=== PATIENT | male | born 1970 | race Caucasian/White ===

== ENCOUNTER 2019-01-11 09:56 | Inpatient (IN) ==
[2019-01-11] MEDS ORDERED: PIPERACILL/TAZOBAC CONSULT ACTIVE PRN (11:03)
[2019-01-11] MEDS ORDERED: PIPERACILLIN/TAZOBACTAM 4.5 GM/120 ML BAG IV ONE (11:03)
--- NOTE | 2019-01-11 11:43 | XRay Report ---
XR foot LT min 3V routine CLINICAL HISTORY: infection pain. Infection. COMPARISON: None. DISCUSSION: Considerable soft tissue edema about the phalanges of the second third and to a lesser ex tent fourth toes. Findings suggesting old posttraumatic change involving the second as well as distal third metatarsal. In the absence of prior images it is difficult to completely exclude the possibility of a superimpose d inflammatory or infectious process. Generalized soft tissue edema IMPRESSION: Findings suggesting generalized soft tissue edema surrounding the second and third metata rsal phalangeal complexes. Possibility of an infectious process creating the disruption at the metata rsophalangeal joints must be considered. The above report was generated using voice recognition software. It may contain grammatical, syntax or spelling errors. Electronically signed by: Linwood Montez M.D. 01/11/2019 11:42 AM
[2019-01-11 11:44] LABS: Basophils # (auto) 0.04 K/uL (0-0.2); Basophils % (auto) 0.3 %; Eosinophils # (auto) 0.14 K/uL (0-0.5); Hematocrit (blood only) 42.6 % (42-52); Hemoglobin 15.4 g/dL (14.0-18.0); Immature Granulocytes # (auto) 0.05 K/uL (0.00-0.02); Immature Granulocytes % (auto) 0.4 %; Lymphocytes # (auto) 2.25 K/uL (1.2-3.4); Lymphocytes % (auto) 16.1 %; Mean Corpuscular Hgb Conc 36.2 g/dL (32-36); Mean Corpuscular Volume 89.9 fL (80-100); Mean Platelet Volume 8.7 fL (7.4-10.4); Monocytes # (auto) 1.36 K/uL (0.11-0.59); Monocytes % (auto) 9.7 %; Neutrophils # (auto) 10.13 K/uL (1.4-6.5); Neutrophils % (auto) 72.5 %; Platelet Count 300 K/uL (130-400); RDW Coefficient of Variation 13.7 % (11.5-14.5); RDW Standard Deviation 45.4 fL (36.4-46.3); Red Blood Count 4.74 M/uL (4.7-6.1); White Blood Count 13.97 K/uL (4.8-10.8)
[2019-01-11 11:50] LABS: Albumin Level 3.7 gm/dl (3.4-5.0); BUN Creatinine Ratio 15.6 (10-20); Calcium 9.2 mg/dl (8.5-10.1); Creatinine Clr Calc Pharmacy 156.4 ml/min; Est GFR (Non-African American) 104.4; Potassium 3.8 mmol/L (3.5-5.1)
[2019-01-11 11:52] LABS: Albumin Globulin Ratio 0.8 (0.9-2); Bilirubin,Total 0.9 mg/dl (0.2-1); C Reactive Protein 12.5 mg/dl (0-0.29); Globulin 4.6 gm/dl (2.5-4.0); Total Protein 8.3 gm/dl (6.4-8.2)
--- NOTE | 2019-01-11 12:06 | Ultrasound Report ---
US venous doppler LE LT CLINICAL HISTORY: pain PAIN. EDEMA. COMPARISON STUDY: No previous studies for comparison. FINDINGS: Real-time and color flow Doppler imaging were performed. Flow was seen within the femoral, popliteal and calf veins with no intraluminal thrombus demonstrated. The saphenous vein is patent. IMPRESSION: No evidence of deep venous thrombosis. Incidental note is made of probable reactive adeno davina of the inguinal region with nodes measuring up to 3.5 x 2.0 cm. The above report was generated using voice recognition software. It may contain grammatical, syntax or spelling errors. Electronically signed by: Linwood Montez M.D. 01/11/2019 12:05 PM
[2019-01-11] MEDS ORDERED: DAPTOmycin 600 MG in SYRINGE 0 ML IV ONE (12:34)
--- NOTE | 2019-01-11 14:05 | History & Physical Report ---
Date of Service January 11, 2019 Assessment & Plan (1) Wound of left foot: -Admit to [facility] -Patient presenting from home with reports of a wound to the left foot. Patient has history of a prior left foot wound after stepping on a nail 04/2017. At that time, patient developed left septic third MCP joint, flexor tendosynovitis, and plantar foot abscess. He underwent extensive debridement at that time. Wound had completely healed by 07/2017. Wound reopened 09/2018, possibly secondary to boots the patient has been wearing for work. Patient was seen up in the wound care clinic at [facility] and had localized debridement and was placed on p.o. Augmentin. -History of neuropathy, unknown etiology; patient is not a diabetic -WBC 13.9K; no other signs of sepsis, hemodynamically stable -X-ray showing possible osteomyelitis of the second and third metatarsals -Received IV Dapto and Zosyn in the ED, will continue with -Follow wound and blood cultures -Previous cultures from 2017 grew MSSA -Obtain arterial ultrasound given nonhealing, recurrent wound -Orthopedics consult, case discussed with Frank Miranda PA-C (2) Hypertension: -BP elevated on presentation, likely situational -Continue home dose of lisinopril, make adjustments as needed (3) PEARL on CPAP: -CPAP as per home settings (4) Tobacco abuse: -Patient counseled regarding tobacco cessation (5) Alcohol abuse: -Patient reports drinking 24 beers on the weekend -will place on alcohol withdrawal "at risk" protocol -Start multivitamin, folic acid, thiamine (6) DVT prophylaxis: -SQ Lovenox History of Present Illness Chief Complaint: Left foot wound Primary Care Provider: NO PCP 48-year-old male who presents to the ED with a left foot wound. Patient has history of a prior left foot wound after stepping on a nail 04/2017. At that time, patient developed left septic third MCP joint, flexor tendosynovitis, and plantar foot abscess. He underwent extensive debridement at that time. Wound had completely healed by 07/2017. Wound reopened 09/2018, possibly secondary to boots the patient has been wearing for work. Patient was seen up in the wound care clinic at [facility] and had localized debridement and was placed on p.o. Augmentin. Patient reports wound had again closed up however reopened about 3 weeks ago. He noticed drainage last evening. He also had pain extending from the bottom of the foot up into the calf. He reports he felt generally unwell and felt as though he had a fever however did not take his temperature. Patient denies chest pain shortness of breath. No lightheadedness, dizziness, diaphoresis, syncopal events. He denies abdominal pain, nausea, vomiting, diarrhea. No urinary symptoms. In the ED, left foot x-ray shows findings suggesting generalized soft tissue edema surrounding the second and third metatarsal phalangeal complexes. Possibility of an infectious process creating the disruption at the metatarsophalangeal joints must be considered. WBC 13.9K, other labs unremarkable. Patient is hemodynamically stable. Patient was given IV Zosyn and IV daptomycin. Allergies Allergy/AdvReac Type Severity Reaction Status Date / Time No Known Allergies Allergy Unverified 01/11/19 10:46 Home Medications Home Medications Medication Instructions Recorded Confirmed Type lisinopril 20 mg PO QAM 01/11/19 01/11/19 History Past Med/Surg History Medical History Tobacco abuse (Chronic) PEARL on CPAP (Chronic) Hypertension (Chronic) Wound of left foot (Chronic) S/P extensive debridement 04/2017 HTN (hypertension) (Chronic) Surgical History S/P right knee arthroscopy (Chronic) History of total left knee replacement (Chronic) Family History Father Heart disease Fatal [place] at age 51 Social History Preferred Language: Qatari Communication Ability: Effective 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 Beliefs That Will Affect Care: None Current Living Situation: Spouse Other Information That Helps Us Care for You: No Feels Safe at Home: Yes Safety Concerns: Feels Safe At This Time Smoking Status: Current every day smoker Tobacco Type: cigarettes Do You Dip or Chew Tobacco: No Second Hand Exposure: No Tobacco Cessation Education Requested by Patient: No Hx Alcohol Use: Yes Alcohol type: beer Alcohol Intake Frequency: Weekly Alcohol Intake Frequency Comment: 24 beers/weekend Hx Substance Use: No Review of Systems Review of Systems: ROS per HPI, all other systems reviewed and negative Physical Exam Constitutional: WD/WN, vitals as above Eyes: PERRL, conjunctivae normal, anicteric sclerae ENMT: external ear and nose normal, oropharynx normal Respiratory: normal respiratory effort, lungs clear to auscultation Cardiovascular: Rate/Rhythm: regular rate and regular rhythm Vessels: normal peripheral pulses Extremities: no edema Gastrointestinal (Abdomen): normal bowel sounds, soft, nontender, no hepatosplenomegaly Musculoskeletal: no cyanosis or clubbing, extremities motor strength 5/5 Skin: no rashes, warm and dry Chronic venous changes noted to BLLE; ~ 6cm calloused wound with small open area in the center noted to plantar surface of left foot at the base of the third metatarsal with associated erythema and edema to the second and third toes, no drainage noted at this time Neurologic: PERRL, EOMI, accommodation nl, no face palsy, no dysarthria Psychiatric: A+Ox3, euthymic affect Results & Data Vital Signs (Past 12 Hours) Vital Signs Temp Pulse Pulse Resp BP BP Pulse Ox 01/11/19 13:00 80 16 156/80 H 97 01/11/19 11:56 92 H 16 154/87 H 97 01/11/19 10:21 36.5 C 97 H 18 201/89 H 97 Laboratory Results Short CBC 01/11/19 Range/Units 11:20 WBC 13.97 H (4.8-10.8) K/uL Hgb 15.4 (14.0-18.0) g/dL Hct 42.6 (42-52) % Plt Count 300 (130-400) K/uL BMP 01/11/19 11:20 Sodium 134 L Potassium 3.8 Chloride 102 Carbon Dioxide 27 BUN 13 Creatinine 0.81 Glucose 124 H Calcium 9.2 Liver Function 01/11/19 Range/Units 11:20 Total Bilirubin 0.9 (0.2-1) mg/dl AST 12 L (15-37) U/L ALT 24 (12-78) U/L Alkaline Phosphatase 68 (45-117) U/L Albumin 3.7 (3.4-5.0) gm/dl Diagnostic Findings Left foot x-ray Impression: Findings suggesting generalized soft tissue edema surrounding the second and third metatarsal phalangeal complexes. Possibility of an infectious process creating the disruption at the metatarsophalangeal joints must be considered. LLE venous Doppler Impression: No evidence of deep venous thrombosis. Incidental note is made of probable reactive adenopathy of the inguinal region with nodes measuring up to 3.5 x 2.0 cm Code Status & VTE Plan VTE Prophylaxis Plan VTE Prophylaxis will be ordered: Yes Supervising Physician Co-Signing Physician Notes 48 yo smoker who is not a diabetic, presents with a nonhealing L plantar foot wound that has worsened. 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 He was placed in a special shoe for 3 weeks, but had to continue working, so bought memory foam inserts for his boots. He hasn't felt any new pain, but reports noticing new drainage from L plantar area that was purulent yesterday, and was associated with fevers and chills overnight. ROS is otherwise unremarkable aside from some ascending pain in LLE that is now localized to his foot. History is significant for "drinking on the weekends" and smoking. He also has HTN and presented with an elevated SBP >200 which improved with treatment in the ER. He is not septic. Blood cultures are pending. Other labs of significance include WBC 13, ESR 32 and CRP 12.5. Foot xray is negative, but high risk for osteo, so will consider MRI after discussion with Orthopedics. On exam he is afebrile and hemodynamically stable and is mentating clearly. He is in no acute distress and skin is warm and dry. Left foot reveals unstageable callused ulceration without drainage on the plantar surface. There is erythema and swelling of the 2 and 3 toes. NVI. Warmth and erythema present on the LLE compared with the right. Pt is obese with unremarkable CV, lung and abdominal exam. US doppler revealed no evidence of DVT. I have seen and examined the patient with Vee Quiroz NP and agree with the assessment above. Plan will be to continue with IV Dapto and Zosyn at this time, and consult Orthopedics. Will obtain arterial US of the leg to exclude atherosclerotic disease that may be contributing to his chronic ulceration. Consider MRI. Will also obtain a B12 level and TSH to be complete. A1C was recently checked and was <6. Trend CRP and ESR. From the history, distribution of pressure while working in his special work boots is the main contributor here. He has no sensation loss in his feet other than at the site of the wound itself. Appreciate specialty input regarding surgical treatments needed and appropriate long-term offloading of the area. DO Stew
[2019-01-11] MEDS ORDERED: DAPTOmycin 500 MG VIAL IV SCH (16:34)
[2019-01-11] MEDS ORDERED: LORazepam 1 MG TAB PO PRN (16:34)
[2019-01-11] MEDS ORDERED: ACETAMINOPHEN 325 MG TAB PO PRN (16:34)
--- NOTE | 2019-01-11 17:12 | Emergency Department Note ---
Entered by Clary Shay acting as a scribe for Tremaine Vazquez DO History of Present Illness General Chief complaint: Infection Stated complaint: HOLE IN LEFT FOOT,INFECTED, GOING INTO LEG, FEVER Time Seen by Provider: 01/11/19 10:54 Source: patient History of Present Illness Provider complaint: left foot infection Onset (ago): week(s) 3 Location: lower extremity (foot) and left Pain Consistency: + other (worsening) Maximum Pain Intensity: 10 Quality: + other (infection) Associated symptoms: + other (left leg pain) The patient is a 48 year old male who presents to the Emergency Department with complaints of a worsening left foot infection over the last 3 weeks. The patient states that his wound is draining and states that he has pain up his entire left leg. The patient states that his wound opened up 3 weeks ago but did not see anyone as it has opened up in the past and healed itself. He reports a history of surgery and an infection to his left foot secondary to stepping on a nail. The patient states that he is not currently on any antibiotics. The patient states that he smokes a pack of cigarettes every 2 days. He reports a history of hypertension but denies being diabetic. Home Medications Home Medications Medication Instructions Recorded Confirmed Type lisinopril 20 mg PO QAM 01/11/19 01/11/19 History Allergies Allergy/AdvReac Type Severity Reaction Status Date / Time No Known Allergies Allergy Unverified 01/11/19 10:46 Past Med/Surg History Medical History Tobacco abuse (Chronic) PEARL on CPAP (Chronic) Hypertension (Chronic) Wound of left foot (Chronic) S/P extensive debridement 04/2017 HTN (hypertension) (Chronic) Surgical History S/P right knee arthroscopy (Chronic) History of total left knee replacement (Chronic) Family History Father Heart disease Fatal [place] at age 51 Social History Preferred Language: Cameroonian Communication Ability: Effective Scrap Cutter Required: No Beliefs That Will Affect Care: None Current Living Situation: Spouse Other Information That Helps Us Care for You: No Feels Safe at Home: Yes Safety Concerns: Feels Safe At This Time Smoking Status: Current every day smoker Tobacco Type: cigarettes Do You Dip or Chew Tobacco: No Second Hand Exposure: No Tobacco Cessation Education Requested by Patient: No Hx Alcohol Use: Yes Alcohol type: beer Alcohol Intake Frequency: Weekly Alcohol Intake Frequency Comment: 24 beers/weekend Hx Substance Use: No Review of Systems See HPI for pertinent positives & negatives. and A total of 10 systems reviewed and were otherwise negative Physical Exam Vital Signs Vital Signs - 24 hr 01/11/19 10:21 01/11/19 11:56 01/11/19 13:00 Temperature 36.5 C Temperature Source Oral Sepsis Recent Fever Within 48 Hours No Sepsis Action Taken by Nursing No Action Required Pulse Rate 97 H Pulse Rate [Apical] 92 H 80 Respiratory Rate 18 16 16 Respiratory Effort / Characteristics Non-Labored Respiratory Depth Normal Blood Pressure 201/89 H Blood Pressure [Right Arm] 154/87 H 156/80 H Blood Pressure Mean 126 Blood Pressure Mean [Right Arm] 109 105 Blood Pressure Position Sitting Pulse Oximetry 97 97 97 Oxygen Delivery Method Room Air Room Air Room Air GENERAL: Patient is awake, alert, and in no acute distress.Patient is resting comfortably and showing no signs of anxiety EYES: The conjunctivae are clear. The pupils are round and reactive. EARS, NOSE, MOUTH AND THROAT: The nose is without any evidence of any deformity. Mucous membranes are moist.Tongue is midline NECK: The neck is nontender and supple. RESPIRATORY: Diminished throughout with scattered rhonchi. No tachypnea or conversational dyspnea. CARDIOVASCULAR: Regular rate and rhythm noted. There no murmurs rubs or gallops normal S1 normal S2 GASTROINTESTINAL: The abdomen is soft. Bowel sounds are present in all quadrants. Abdomen is nontender. MUSCULOSKELETAL/EXTREMITIES: There is no evidence of gross deformity. Full range of motion is noted in the hips and shoulders. SKIN: Large ulcer on the ball of the left foot. Symmetric swelling on the entire leg. Purulent drainage and infected odor. NEUROLOGIC: Patient is awake alert and oriented x3. Course 1056: The patient was evaluated in room B5. A history and physical were performed. 1241: I updated the patient who verbalized agreement and understanding of the treatment plan. 1243: I discussed the patient's case with Vee Avery who will evaluate the patient for further management. Consultations Consultation #1: Vee Malin Time: 12:43 Administered Medications Enoxaparin Sodium (Lovenox) 40 mg SQ Q24H [facility] Stop: 02/10/19 17:59 Last Admin: 01/12/19 18:11 Dose: Not Given Documented by: [id number] Admin: 01/11/19 20:49 Dose: 40 mg Documented by: [id number] Folic Acid (Folvite) 1 mg PO QAM [facility] Stop: 02/10/19 16:33 Last Admin: 01/12/19 07:58 Dose: 1 mg Documented by: [id number] Admin: 01/11/19 20:48 Dose: 1 mg Documented by: [id number] Gadobutrol (Gadavist 65ml) 13 ml IV ONCE PRN PRN Reason: Interaction Checking Stop: 01/15/19 19:44 Last Admin: 01/11/19 19:45 Dose: 13 ml Documented by: [id number] Daptomycin 600 mg/ Syringe 12 mls @ 6 mls/min IV Q24H [facility]; Protocol Stop: 01/21/19 12:59 Last Admin: 01/12/19 12:21 Dose: 6 mls/min Documented by: [id number] Piperacillin Sod/Tazobactam (Sod 4.5 gm/ Dextrose) 120 mls @ 30 mls/hr IV Q8H [facility]; Protocol Stop: 01/21/19 17:59 Last Infusion: 01/12/19 16:30 Dose: 0 mls/hr Documented by: [id number] Admin: 01/12/19 12:21 Dose: 30 mls/hr Documented by: [id number] Infusion: 01/12/19 08:01 Dose: 0 mls/hr Documented by: [id number] Admin: 01/12/19 03:51 Dose: 30 mls/hr Documented by: [id number] Infusion: 01/12/19 01:12 Dose: 0 mls/hr Documented by: [id number] Admin: 01/11/19 20:50 Dose: 30 mls/hr Documented by: [id number] Lisinopril (Zestril) 20 mg PO QAM [facility] Stop: 02/11/19 08:59 Last Admin: 01/12/19 07:59 Dose: 20 mg Documented by: [id number] [facility]ivitamins ([facility]ivitamin Tab) [facility] Stop: 02/10/19 16:33 Last Admin: 01/12/19 07:58 Dose: 1 tab Documented by: [id number] Admin: 01/11/19 20:48 Dose: 1 tab Documented by: [id number] Thiamine HCl (Vitamin B-1) 100 mg PO QAM DIANELYS Stop: 02/10/19 16:33 Last Admin: 01/12/19 07:59 Dose: 100 mg Documented by: [id number] Admin: 01/11/19 20:48 Dose: 100 mg Documented by: [id number] Tramadol HCl (Ultram) 50 mg PO Q4H PRN PRN Reason: Pain Stop: 02/10/19 16:33 Last Admin: 01/11/19 23:41 Dose: 50 mg Documented by: [id number] Discontinued Medications Piperacillin Sod/Tazobactam Sod (Zosyn) 4.5 gm in 120 mls @ 240 mls/hr IV NOW ONE Stop: 01/11/19 11:32 Last Infusion: 01/11/19 12:16 Dose: 0 mls/hr Documented by: [id number] Admin: 01/11/19 11:40 Dose: 240 mls/hr Documented by: [id number] Daptomycin 600 mg/ Syringe 12 mls @ 6 mls/min IV NOW ONE; Protocol Stop: 01/11/19 12:35 Last Admin: 01/11/19 13:24 Dose: 6 mls/min Documented by: [id number] Medical Decision Making Differential Diagnosis Differential diagnosis: Etiologies such as cellulitis, abscess, osteomyelitis, MRSA infection, DVT, necrotizing fasciitis, dermatitis, drug eruption, as well as others were entertained. Medical Records Attestation: I reviewed the patient's medical records. Home Medications Current Medication List: was personally reviewed by me Laboratory Data Attestation: I reviewed the patient's lab results. Result diagrams: 01/12/19 04:57 01/12/19 04:57 Lab Results 01/11/19 01/11/19 01/11/19 Range/Units 11:20 11:20 11:20 WBC 13.97 H (4.8-10.8) K/uL RBC 4.74 (4.7-6.1) M/uL Hgb 15.4 (14.0-18.0) g/dL Hct 42.6 (42-52) % MCV 89.9 (80-100) fL MCH 32.5 (25-34) pg MCHC 36.2 H (32-36) g/dL RDW Std Deviation 45.4 (36.4-46.3) fL RDW Coeff of Giacomo 13.7 (11.5-14.5) % Plt Count 300 (130-400) K/uL MPV 8.7 (7.4-10.4) fL Immature Gran % (Auto) 0.4 % Neut % (Auto) 72.5 % Lymph % (Auto) 16.1 % [place] % (Auto) 9.7 % Eos % (Auto) 1.0 % Baso % (Auto) 0.3 % Immature Gran # (Auto) 0.05 H (0.00-0.02) K/uL Neut # (Auto) 10.13 H (1.4-6.5) K/uL Lymph # (Auto) 2.25 (1.2-3.4) K/uL [place] # (Auto) 1.36 H (0.11-0.59) K/uL Eos # (Auto) 0.14 (0-0.5) K/uL Baso # (Auto) 0.04 (0-0.2) K/uL ESR 32 H (0-14) mm/hr PT (9.0-12.0) Seconds INR (0.9-1.1) Sodium 134 L (136-145) mmol/L Potassium 3.8 (3.5-5.1) mmol/L Chloride 102 (98-107) mmol/L Carbon Dioxide 27 (21-32) mmol/L Anion Gap 5.0 (3-11) BUN 13 (7-18) mg/dl Creatinine 0.81 (0.6-1.4) mg/dl Est Cr Clr Drug Dosing 156.4 ml/min Est GFR ( Amer) 121.0 Est GFR (Non-Af Amer) 104.4 BUN/Creatinine Ratio 15.6 (10-20) Glucose 124 H (70-99) mg/dl Calcium 9.2 (8.5-10.1) mg/dl Total Bilirubin 0.9 (0.2-1) mg/dl AST 12 L (15-37) U/L ALT 24 (12-78) U/L Alkaline Phosphatase 68 (45-117) U/L C-Reactive Protein 12.50 H (0-0.29) mg/dl Total Protein 8.3 H (6.4-8.2) gm/dl Albumin 3.7 (3.4-5.0) gm/dl Globulin 4.6 H (2.5-4.0) gm/dl Albumin/Globulin Ratio 0.8 L (0.9-2) 01/11/19 Range/Units 11:20 WBC (4.8-10.8) K/uL RBC (4.7-6.1) M/uL Hgb (14.0-18.0) g/dL Hct (42-52) % MCV (80-100) fL MCH (25-34) pg MCHC (32-36) g/dL RDW Std Deviation (36.4-46.3) fL RDW Coeff of Giacomo (11.5-14.5) % Plt Count (130-400) K/uL MPV (7.4-10.4) fL Immature Gran % (Auto) % Neut % (Auto) % Lymph % (Auto) % [place] % (Auto) % Eos % (Auto) % Baso % (Auto) % Immature Gran # (Auto) (0.00-0.02) K/uL Neut # (Auto) (1.4-6.5) K/uL Lymph # (Auto) (1.2-3.4) K/uL [place] # (Auto) (0.11-0.59) K/uL Eos # (Auto) (0-0.5) K/uL Baso # (Auto) (0-0.2) K/uL ESR (0-14) mm/hr PT 10.9 (9.0-12.0) Seconds INR 1.1 (0.9-1.1) Sodium (136-145) mmol/L Potassium (3.5-5.1) mmol/L Chloride (98-107) mmol/L Carbon Dioxide (21-32) mmol/L Anion Gap (3-11) BUN (7-18) mg/dl Creatinine (0.6-1.4) mg/dl Est Cr Clr Drug Dosing ml/min Est GFR ( Amer) Est GFR (Non-Af Amer) BUN/Creatinine Ratio (10-20) Glucose (70-99) mg/dl Calcium (8.5-10.1) mg/dl Total Bilirubin (0.2-1) mg/dl AST (15-37) U/L ALT (12-78) U/L Alkaline Phosphatase (45-117) U/L C-Reactive Protein (0-0.29) mg/dl Total Protein (6.4-8.2) gm/dl Albumin (3.4-5.0) gm/dl Globulin (2.5-4.0) gm/dl Albumin/Globulin Ratio (0.9-2) Imaging Data Radiologist's Impression: Radiology results as stated below per my review and the radiologist's interpretation: XR foot LT min 3V routine CLINICAL HISTORY: infection pain. Infection. COMPARISON: None. DISCUSSION: Considerable soft tissue edema about the phalanges of the second third and to a lesser extent fourth toes. Findings suggesting old posttraumatic change involving the second as well as distal third metatarsal. In the absence of prior images it is difficult to completely exclude the possibility of a superimposed inflammatory or infectious process. Generalized soft tissue edema IMPRESSION: Findings suggesting generalized soft tissue edema surrounding the second and third metatarsal phalangeal complexes. Possibility of an infectious process creating the disruption at the metatarsophalangeal joints must be consi dered. The above report was generated using voice recognition software. It may contain grammatical, syntax or spelling errors. Electronically signed by: Linwood Montez M.D. 01/11/2019 11:42 AM US venous doppler LE LT CLINICAL HISTORY: pain PAIN. EDEMA. COMPARISON STUDY: No previous studies for comparison. FINDINGS: Real-time and color flow Doppler imaging were performed. Flow was seen within the femoral, popliteal and calf veins with no intraluminal thrombus demonstrated. The saphenous vein is patent. IMPRESSION: No evidence of deep venous thrombosis. Incidental note is made of probable reactive adenopathy of the inguinal region with nodes measuring up to 3.5 x 2.0 cm. The above report was generated using voice recognition software. It may contain grammatical, syntax or spelling errors. Electronically signed by: Linwood Montez M.D. 01/11/2019 12:05 PM Blood Pressure Blood Pressure Findings: Elevated blood pressure Blood Pressure Disposition: further management by hospitalist AGUSTIN Esparza The patient is a 48-year-old male who presented to the emergency department for an evaluation of an infection on his left foot. The patient had previous symptoms in the past but the area opened up recently and started draining again. It has the appearance of a very deep ulcer and has the smell of significant i nfection. Probing the area for culture did show that it was very deep. X-rays show that there is already some bony destruction which I am sure is not completely new but may be related to some underlying osteomyelitis. The patient was treated with IV antibiotics in the emergency department. I discussed the patient's laboratory and radiographic studies with him. Given his findings I also discussed his case with the on-call [facility] hospitalist group. They have agreed to evaluate the patient in the emergency department for further management and disposition. Impression & Plan Ulcer of left foot, Osteomyelitis Discharge Plan Visit Data *Final* Discharge Date/Time: 01/11/19 15:06 Chief Complaint: Infection Stated Complaint: HOLE IN LEFT FOOT,INFECTED, GOING INTO LEG, FEVER ED Provider: Tremaine Vazquez Discharge Problem: Ulcer of left foot, Osteomyelitis Patient Disposition: Admitted As Inpatient Discharge Instructions Interventions: ED Discharge Assessment Last Done: 01/11/19 15:06 The scribe's documentation has been prepared under my direction and personally reviewed by me in its entirety. I confirm that the note above accurately reflects all work, treatment, procedures, and medical decision making performed by me.
[2019-01-11] MEDS ORDERED: DAPTOMYCIN CONSULT ACTIVE PRN (17:29)
[2019-01-11 17:53] LABS: INR 1.1 (0.9-1.1); Prothrombin Time 10.9 Seconds (9.0-12.0)
[2019-01-11] MEDS ORDERED: GADOBUTROL 65ML VIAL IV PRN (19:45)
--- NOTE | 2019-01-11 19:48 | Ultrasound Report ---
US arterial duplex LE CLINICAL HISTORY: 48 years-old Male presenting with non healing left foot wound. TECHNIQUE: Real-time grayscale and color and spectral Doppler ultrasound imaging of the left lower ex tremity arteries was performed. Measurements calculated based on NASCET criteria. COMPARISON: None. FINDINGS: LEFT: Common femoral artery: Patent. Triphasic waveforms. Peak systolic velocity (PSV) 125 cm/s. Deep femoral artery: Patent. Biphasic waveforms. PSV 102 cm/s. Superficial femoral artery: Patent. Focal increased velocity in the midportion. Triphasic waveforms. PSV 294 cm/s at the midportion site of stenosis. Proximal PSV 161 cm/s and distal PSV 216 cm/s. Popliteal artery: Patent. Triphasic waveforms. PSV 123-124 cm/s. Anterior tibial artery: Patent. Biphasic waveforms. 84-135 PSV 0 cm/s. Posterior tibial artery: Patent. Monophasic waveforms. PSV 76-81 cm/s. Peroneal artery: Patent. Monophasic waveforms. PSV 36-50 cm/s. Dorsalis pedis: Patent. Monophasic waveforms. PSV 79 cm/s. ANKLE/BRACHIAL INDEX (ANGELA): Brachial: Right: mmHg. Left: 132 mmHg. Ankle (posterior tibial): Right: 168 mmHg. Left: 129 mmHg. Ankle (dorsalis pedis): Right: 130 mmHg. Left: 145 mmHg. Ankle/brachial index: Right: 1.27, Left: 1.10. Reference ranges: Normal Ankle/Brachial Index (ANGELA) 1.0-1.4; 0.91-0.99 borderline; < or = 0.9 abnormal (0.7-0.89 mild, 0.51-0.69 moderate, < or = 0.5 severe peripheral arterial disease). Normal Toe/Brachial Index (TBI) > or = 0.6; < 0.6 abnormal (0.34-0.59 mild, 0.12-0.34 moderate, < or = 0.11 severe peripheral arterial disease). IMPRESSION: 1. Elevated velocity in the mid left superficial femoral artery is less than a doubling of upstream velocity and therefore not felt to be hemodynamically significant. 2. Normal ankle-brachial indices. Electronically signed by: Jordan Galicia M.D. 01/11/2019 7:47 PM
--- NOTE | 2019-01-11 20:20 | Magnetic Resonance Report ---
MR foot LT wo/w con CLINICAL HISTORY: 48 years-old Male presenting with plantar foot wound, wound infection, marker place d, history of surgery after stepping on a nail in 2017, rule out osteomyelitis. TECHNIQUE: Multisequence, multiplanar MR imaging of the left foot was performed before and after the administration of intravenous contrast. IV contrast: 13 mL of Gadavist. COMPARISON: Plain radiographs from earlier today. FINDINGS: Localizer images: Unremarkable. Motion artifact degrades several sequences moderately limiting diagnostic sensitivity the exam. T2 hyperintense, T1 hypointense bone marrow signal within the base and proximal diaphysis of the four th metatarsal. There is significant enhancement of this region and surrounding soft tissues. No signi ficant fluid in the adjacent joint spaces. There is minimal focal subarticular bone marrow signal aditi nges of the cuboid. T2 hyperintense, mild T1 hypointense bone marrow signal within the head of the third metatarsal. Asso ciated fluid in the third metatarsophalangeal joint. Erosions and bony remodeling of the second and t hird metatarsal heads. There is preserved bone marrow signal intensity of the phalanges of the second and third toes. Subcutaneous edema noted over prominently over the dorsum of the forefoot. No rim-enhancing fluid col lection to suggest abscess. Severe fatty atrophy of musculature. IMPRESSION: 1. Findings highly suspicious for osteomyelitis of the base and proximal metaphysis of the fourth me tatarsal. No convincing evidence of septic arthritis though there is findings to suggest minimal invo lvement of the subarticular cuboid at the articulation with the fourth metatarsal. 2. Osteitis without convincing evidence of osteomyelitis at the head of the third metatarsal. Fluid in the third metatarsophalangeal joint could be reactive given the associated apparent erosions of th e third metatarsal head. Septic arthritis is difficult to exclude though not favored. 3. Milder erosive changes of the head of the second metatarsal without associated bone marrow signal changes. This may be on a degenerative or other arthropathy basis. The report will be called/faxed according to standard departmental protocol. Electronically signed by: Jordan Galicia M.D. 01/11/2019 8:19 PM
[2019-01-11] MEDS: MULTIVITAMIN TAB PO SCH (20:48)
[2019-01-11] MEDS: FOLIC ACID 1 MG TAB PO SCH (20:48)
[2019-01-11] MEDS: THIAMINE HCL 100 MG TAB PO SCH (20:48)
[2019-01-11] MEDS: ENOXAPARIN INJ 40 MG/0.4 ML SYR SQ SCH (20:49)
[2019-01-11] MEDS: PIPERACILLIN/TAZOBACTAM 4.5 GM in DEXTROSE 5% 100 ML IV SCH (20:50)
[2019-01-11] MEDS: TRAMADOL HCL 50 MG TABLET PO PRN (23:41)
[2019-01-12] MEDS: PIPERACILLIN/TAZOBACTAM 4.5 GM in DEXTROSE 5% 100 ML IV SCH ×3 (03:51→20:25)
[2019-01-12 05:34] LABS: Hematocrit (blood only) 43.2 % (42-52); Hemoglobin 14.8 g/dL (14.0-18.0); Mean Corpuscular Hgb Conc 34.3 g/dL (32-36); Mean Platelet Volume 8.8 fL (7.4-10.4); Platelet Count 281 K/uL (130-400); RDW Coefficient of Variation 13.8 % (11.5-14.5); RDW Standard Deviation 45.7 fL (36.4-46.3); White Blood Count 9.02 K/uL (4.8-10.8)
[2019-01-12 05:59] LABS: BUN Creatinine Ratio 16.1 (10-20); Calcium 8.9 mg/dl (8.5-10.1); Creatinine Clr Calc Pharmacy 151.4 ml/min; Est GFR (Non-African American) 101.8; Potassium 3.8 mmol/L (3.5-5.1)
[2019-01-12 06:00] LABS: C Reactive Protein 11.1 mg/dl (0-0.29)
[2019-01-12] MEDS: FOLIC ACID 1 MG TAB PO SCH (07:58)
[2019-01-12] MEDS: MULTIVITAMIN TAB PO SCH (07:58)
[2019-01-12] MEDS: THIAMINE HCL 100 MG TAB PO SCH (07:59)
[2019-01-12] MEDS: LISINOPRIL 20 MG TAB PO SCH (07:59)
[2019-01-12 09:04] LABS: Folate (Folic Acid) 8.11 ng/ml (>5.38)
--- NOTE | 2019-01-12 10:23 | Infectious Disease Consult ---
Date of Consultation January 12, 2019 Assessment & Plan (1) Chronic osteomyelitis of left foot with draining sinus: 48-year-old male with what appears to be chronic osteomyelitis of the left foot following puncture wound from nail, clinically responding to current antibiotics. Will likely require surgical debridement, await orthopedic surgery consultation. For now we will continue IV antibiotics pending culture results. Will follow. History of Present Illness Reason for Consultation: Osteomyelitis Attending Physician: Tucker Almazan MD History of Present Illness 48-year-old male with history of tobacco and alcohol abuse, symptoms of neuropathy in his feet for several years, who suffered a left foot injury after stepping on a nail in 2016. Developed severe foot infection with septic arthritis and foot abscess requiring surgical debridement. Patient received IV antibiotics and then a course of oral antibiotics and eventually had closing of the wound in early 2017. More recently, wound opened again, was given a course of Augmentin, but then developed progressively worsening redness, swelling, pain going up into his left groin, associated with fever and chills. Came to the emergency department where MRI was obtained which shows evidence of osteomyelitis in the foot. Cultures from the wound and blood cultures are pending. Patient currently being treated with daptomycin and Zosyn, feels significantly better since admission. Orthopedic surgery consult pending. Allergies Allergy/AdvReac Type Severity Reaction Status Date / Time No Known Allergies Allergy Unverified 01/11/19 10:46 Home Medications Home Medications Medication Instructions Recorded Confirmed Type lisinopril 20 mg PO QAM 01/11/19 01/11/19 History Patient History Medical History Tobacco abuse (Chronic) PEARL on CPAP (Chronic) Hypertension (Chronic) Wound of left foot (Chronic) S/P extensive debridement 04/2017 HTN (hypertension) (Chronic) Surgical History S/P right knee arthroscopy (Chronic) History of total left knee replacement (Chronic) Family History Father Heart disease Fatal [place] at age 51 Social History Preferred Language: Uzbek Communication Ability: Effective Yolk Spray Drier Required: No Beliefs That Will Affect Care: None Current Living Situation: Spouse Other Information That Helps Us Care for You: No Feels Safe at Home: Yes Safety Concerns: Feels Safe At This Time Smoking Status: Current every day smoker Tobacco Type: cigarettes Do You Dip or Chew Tobacco: No Second Hand Exposure: No Tobacco Cessation Education Requested by Patient: No Hx Alcohol Use: Yes Alcohol type: beer Alcohol Intake Frequency: Weekly Alcohol Intake Frequency Comment: 24 beers/weekend Hx Substance Use: No Review of Systems Review of Systems: All systems reviewed & are unremarkable except as noted in HPI & below Physical Exam Constitutional: WD/WN, vitals as above + obese and comfortable; no acute distress Eyes: PERRL, conjunctivae normal, anicteric sclerae ENMT: external ear and nose normal, oropharynx normal Neck: trachea midline, no thyromegaly neck nontender Respiratory: normal respiratory effort, lungs clear to auscultation normal percussion; does not use accessory muscles Cardiovascular: Rate/Rhythm: regular rate and regular rhythm Heart Sounds: normal S1 and normal S2; no gallop, no murmur and no cardiac rub Vessels: normal peripheral pulses; no JVD Gastrointestinal (Abdomen): normal bowel sounds, soft, nontender, no hepatosplenomegaly Musculoskeletal: no cyanosis or clubbing, extremities motor strength 5/5 Spine: thoracic spine normal to inspection and lumbar spine normal to inspection; no cervical spinal tenderness Skin: normal turgor and + ulcer (Plantar surface left foot with some purulent drainage) Neurologic: patellar DTR's 2+ bilat, sensation intact no focal motor deficits Psychiatric: A+Ox3, euthymic affect Orientation: cooperative Lymphatic: no cervical or axillary lymphadenopathy no inguinal lymphadenopathy Results & Data Vital Signs (Past 12 Hours) Vital Signs Temp Pulse Resp BP Pulse Ox 01/12/19 07:43 36.4 C L 64 20 131/87 95 01/12/19 00:16 36.5 C 70 20 154/97 H 95 Laboratory Results Short CBC 01/11/19 01/12/19 Range/Units 11:20 04:57 WBC 13.97 H 9.02 (4.8-10.8) K/uL Hgb 15.4 14.8 (14.0-18.0) g/dL Hct 42.6 43.2 (42-52) % Plt Count 300 281 (130-400) K/uL BMP 01/11/19 01/12/19 11:20 04:57 Sodium 134 L 135 L Potassium 3.8 3.8 Chloride 102 103 Carbon Dioxide 27 26 BUN 13 14 Creatinine 0.81 0.86 Glucose 124 H 102 H Calcium 9.2 8.9 Liver Function 01/11/19 Range/Units 11:20 Total Bilirubin 0.9 (0.2-1) mg/dl AST 12 L (15-37) U/L ALT 24 (12-78) U/L Alkaline Phosphatase 68 (45-117) U/L Albumin 3.7 (3.4-5.0) gm/dl Diagnostic Findings Microbiology 01/11/19 11:00 Foot,Left Gram Stain - Final MR foot LT wo/w con CLINICAL HISTORY: 48 years-old Male presenting with plantar foot wound, wound infection, marker placed, history of surgery after stepping on a nail in 2017, rule out osteomyelitis. TECHNIQUE: Multisequence, multiplanar MR imaging of the left foot was performed before and after the administration of intravenous contrast. IV contrast: 13 mL of Gadavist. COMPARISON: Plain radiographs from earlier today. FINDINGS: Localizer images: Unremarkable. Motion artifact degrades several sequences moderately limiting diagnostic sensitivity the exam. T2 hyperintense, T1 hypointense bone marrow signal within the base and proximal diaphysis of the fourth metatarsal. There is significant enhancement of this region and surrounding soft tissues. No significant fluid in the adjacent joint spaces. There is minimal focal subarticular bone marrow signal changes of the cuboid. T2 hyperintense, mild T1 hypointense bone marrow signal within the head of the third metatarsal. Associated fluid in the third metatarsophalangeal joint. Erosions and bony remodeling of the second and third metatarsal heads. There is preserved bone marrow signal intensity of the phalanges of the second and third toes. Subcutaneous edema noted over prominently over the dorsum of the forefoot. No rim-enhancing fluid collection to suggest abscess. Severe fatty atrophy of musculature. IMPRESSION: 1. Findings highly suspicious for osteomyelitis of the base and proximal metaphysis of the fourth metatarsal. No convincing evidence of septic arthritis though there is findings to suggest minimal involvement of the subarticular cuboid at the articulation with the fourth metatarsal. 2. Osteitis without convincing evidence of osteomyelitis at the head of the third metatarsal. Fluid in the third metatarsophalangeal joint could be reactive given the associated apparent erosions of the third metatarsal head. Septic arthritis is difficult to exclude though not favored. 3. Milder erosive changes of the head of the second metatarsal without associated bone marrow signal changes. This may be on a degenerative or other arthropathy basis. The report will be called/faxed according to standard departmental protocol. Electronically signed by: Jordan Galicia M.D. 01/11/2019 8:19 PM Dictated: 01/11/192012 Transcribed: 01/11/192012
[2019-01-12] MEDS: DAPTOmycin 600 MG in SYRINGE 0 ML IV SCH (12:21)
--- NOTE | 2019-01-12 15:50 | Hospitalist Progress Note ---
Date of Service January 12, 2019 Assessment & Plan (1) Wound of left foot: Left foot osteomyelitis Left foot wound H/O left foot wound after stepping on a nail 04/2017 H/O Neuropathy MRI Left foot: Suggestive of osteomyelitis of proximal metaphysis of the fourth metatarsal; osteitis without evidence of osteomyelitis at the head of the third metatarsal. Erosive changes of the head of the second metatarsal Venous Dopplers: No evidence of DVT Arterial Doppler: Normal ankle-brachial indices Continue IV Dapto and Zosyn Day #2 Orthopedics, infectious disease consulted for input Continue local wound care Received IV fluid Wound Culture: Staph aureus, alpha strep not enterococcus Blood cultures: Pending (2) Hypertension: Stable Continue lisinopril (3) PEARL on CPAP: CPAP as per home settings Qhs (4) Tobacco abuse: Counseled tobacco cessation (5) Alcohol abuse: No signs of withdrawal Continue thiamine, folic acid (6) DVT prophylaxis: SQ Lovenox Subjective Patient is seen and examined at bedside Complaints of left foot pain Denies any chest pain, shortness of breath, dizziness, nausea, abdominal pain Likely would require debridement of the left foot wound Waiting for orthopedics input Review of Systems Review of Systems: All systems reviewed & are unremarkable except as noted in HPI & below Physical Exam Physical Exam: Physical Exam: Vitals signs as noted above General Appearance:Obese, no apparent distress Head: normocephalic, Atraumatic Eyes: normal inspection, EOMI Neck: supple, Trachea midline Respiratory/Chest: Normal breath sounds, CTA, No accessory muscle use Cardiovascular: S1, S2, No murmur Abdomen/GI:Soft, Non tender, Bowel sounds present Extremities/Musculoskelatal:normal inspection, chronic venous stasis changes, left foot -wound on plantar surface-- in dressing Neurologic/Psych:AAOX3, grossly no focal neurological deficits Skin: normal color, warm Results & Data Vital Signs (Past 12 Hours) Vital Signs Temp Pulse Resp BP Pulse Ox 01/12/19 07:43 36.4 C L 64 20 131/87 95 Laboratory Results Short CBC 01/12/19 Range/Units 04:57 WBC 9.02 (4.8-10.8) K/uL Hgb 14.8 (14.0-18.0) g/dL Hct 43.2 (42-52) % Plt Count 281 (130-400) K/uL BMP 01/12/19 04:57 Sodium 135 L Potassium 3.8 Chloride 103 Carbon Dioxide 26 BUN 14 Creatinine 0.86 Glucose 102 H Calcium 8.9
[2019-01-12] MEDS: ENOXAPARIN INJ 40 MG/0.4 ML SYR SQ SCH (18:11)
--- NOTE | 2019-01-13 01:44 | Consultation Report ---
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 He had a history of prior left foot wound that he had irrigation and debridement, incision and drainage in 2017 in [facility]. He has septic third metatarsophalangeal joint, flexor tenosynovitis and plantar foot abscess. Underwent extensive debridement at that time. The wound had healed by 07/2017 and reopened in September 2008. He was seen in wound care clinic at [facility] in [place] and had localized debridement and placed on p.o. Augmentin again. Over the last 3 weeks, patient noted ulceration of the foot again on the left foot and then was seen in the Emergency Department yesterday. He was then admitted to the hospital, seen by infectious disease, Internal Medicine and the Emergency Department. The patient states that his condition has improved somewhat since he has been on IV antibiotics. He has also had an MRI and x-rays and ultrasound. The patient denies diabetes or neuropathy; however, he has features consistent with the above. PAST MEDICAL HISTORY: Obstructive sleep apnea, hypertension, tobacco abuse, alcohol abuse, wound of the left foot, hypertension, obesity. PAST SURGICAL HISTORY: Right knee arthroscopy, history of left total knee replacement, left foot incision and drainage with extensive debridement in 2017. ALLERGIES: No known drug allergies. MEDICATIONS: Lisinopril 20 mg daily. SOCIAL HISTORY: He smokes half pack of cigarettes per day, he drinks 24 beers per week and denies drug use. He is . 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 PHYSICAL EXAMINATION: This is an obese 48-year-old gentleman lying supine in his hospital room bed. He is alert and oriented x3. Speech clear and fluent. Affect is appropriate. Cranial nerves II-XII grossly intact. He has fair dentition. He has suntan and sunburn skin. Lower extremity exam demonstrates obvious venous stasis changes bilateral lower extremities with left greater than right edema. He has dorsalis pedis posterior tibial pulses which are palpable bilaterally. Feet are warm. Hair growth is scant below the level of the mid tibia bilaterally. He has an ulceration measuring approximately 3.5 cm in diameter plantar aspect of left forefoot. There is involvement of the skin, dermis and into the subcutaneous fat. He has scant drainage, no foul odor. He has forefoot edema and discoloration. Limited range of motion of the second and third toes due to prior operation with healed incisions. No obvious fluctuance is palpated. RADIOGRAPHS: MRI and ultrasound were all reviewed. IMPRESSION: 1. Left foot possible osteomyelitis fourth metatarsal base and proximal metaphysis. 2. Third metatarsal head osteitis, possible osteomyelitis. Second metatarsal head osteitis, possible osteomyelitis with ulceration of left plantar foot. 3. Third metatarsophalangeal joint effusion, features suggest a effusion rather than a septic arthritis. However could be septic arthritis per MRI findings. RECOMMENDATION: Continue IV antibiotics. PLAN: For n.p.o. after midnight on night for possibility of OR debridement on Thursday. In the interim, continue IV antibiotics as he shows some response to conservative management. I counseled him about smoking cessation and cessation of alcohol use with a need for substantial weight loss. The patient understands the above and will attempt to do so. Thank you for the opportunity to consult in the care of this patient. I attest to the content of the Intraoperative Record and any orders documented therein. Any exceptions are noted below. FIONA
[2019-01-13] MEDS: PIPERACILLIN/TAZOBACTAM 4.5 GM in DEXTROSE 5% 100 ML IV SCH ×3 (03:46→21:22)
[2019-01-13 08:03] LABS: C Reactive Protein 3.68 mg/dl (0-0.29); Creatinine Clr Calc Pharmacy 166.9 ml/min; Est GFR (African American) 122.8
[2019-01-13] MEDS: LISINOPRIL 20 MG TAB PO SCH (08:04)
[2019-01-13] MEDS: FOLIC ACID 1 MG TAB PO SCH (08:04)
[2019-01-13] MEDS: THIAMINE HCL 100 MG TAB PO SCH (08:04)
[2019-01-13] MEDS: MULTIVITAMIN TAB PO SCH (08:04)
[2019-01-13] MEDS: DAPTOmycin 600 MG in SYRINGE 0 ML IV SCH (13:19)
--- NOTE | 2019-01-13 17:02 | Hospitalist Progress Note ---
Date of Service January 13, 2019 Assessment & Plan (1) Wound of left foot: Left foot osteomyelitis Left foot wound H/O left foot wound after stepping on a nail 04/2017 H/O Neuropathy MRI Left foot: Suggestive of osteomyelitis of proximal metaphysis of the fourth metatarsal; osteitis without evidence of osteomyelitis at the head of the third metatarsal. Erosive changes of the head of the second metatarsal Venous Dopplers: No evidence of DVT Arterial Doppler: Normal ankle-brachial indices Continue IV Dapto and Zosyn Day #3 Wound Culture: Staph aureus, alpha strep not enterococcus, Haemophilus Parainfluenza Blood cultures:No growth to date Orthopedics, infectious disease consulted for input Continue local wound care Wound Debridement likely tomorrow Pain is controlled (2) Hypertension: Stable Continue lisinopril (3) PEARL on CPAP: CPAP as per home settings Qhs (4) Tobacco abuse: Counseled tobacco cessation (5) Alcohol abuse: No signs of withdrawal Continue thiamine, folic acid (6) DVT prophylaxis: SQ Lovenox Subjective Patient is seen and examined at bedside States left foot pain is well controlled Denies any chest pain, shortness of breath, dizziness, nausea, abdominal pain Planned for would debridement likely tomorrow Review of Systems Review of Systems: All systems reviewed & are unremarkable except as noted in HPI & below Physical Exam Physical Exam: Physical Exam: Vitals signs as noted above General Appearance:Obese, no apparent distress Head: normocephalic, Atraumatic Eyes: normal inspection, EOMI Neck: supple, Trachea midline Respiratory/Chest: Normal breath sounds, CTA Cardiovascular: S1, S2, No murmur Abdomen/GI:Soft, Non tender, Bowel sounds present Extremities/Musculoskelatal:normal inspection, chronic venous stasis changes, left foot -wound on plantar surface-- in dressing Neurologic/Psych:AAOX3, grossly no focal neurological deficits Skin: normal color, warm Results & Data Vital Signs (Past 12 Hours) Vital Signs Temp Pulse Resp BP Pulse Ox 01/13/19 15:00 36.8 C 77 20 136/74 96 01/13/19 07:20 36.4 C L 60 18 121/79 96 Laboratory Results BMP 01/13/19 07:03 Creatinine 0.78
[2019-01-13] MEDS: ENOXAPARIN INJ 40 MG/0.4 ML SYR SQ SCH (17:41)
--- NOTE | 2019-01-13 21:02 | Infectious Disease Progress Nt ---
Date of Service January 13, 2019 Assessment & Plan (1) Chronic osteomyelitis of left foot with draining sinus: 48-year-old male with what appears to be chronic osteomyelitis of the left foot following puncture wound from nail, clinically responding to current antibiotics. Will likely require surgical debridement, await orthopedic surgery consultation. For now we will continue IV antibiotics pending culture results. Will follow. Subjective States left foot pain is well controlled Denies any chest pain, shortness of breath, dizziness, nausea, abdominal pain. Remains afebrile. Planned for would debridement likely tomorrow Review of Systems Review of Systems: All systems reviewed & are unremarkable except as noted in HPI & below Physical Exam Constitutional: WD/WN, vitals as above + obese and comfortable; no acute distress Eyes: PERRL, conjunctivae normal, anicteric sclerae ENMT: external ear and nose normal, oropharynx normal Neck: trachea midline, no thyromegaly neck nontender Respiratory: normal respiratory effort, lungs clear to auscultation normal percussion; does not use accessory muscles Cardiovascular: Rate/Rhythm: regular rate and regular rhythm Heart Sounds: normal S1 and normal S2; no gallop, no murmur and no cardiac rub Vessels: normal peripheral pulses; no JVD Gastrointestinal (Abdomen): normal bowel sounds, soft, nontender, no hepatosplenomegaly Musculoskeletal: no cyanosis or clubbing, extremities motor strength 5/5 Spine: thoracic spine normal to inspection and lumbar spine normal to inspection; no cervical spinal tenderness Skin: normal turgor and + ulcer (Plantar surface left foot with some purulent drainage) Neurologic: patellar DTR's 2+ bilat, sensation intact no focal motor deficits Psychiatric: A+Ox3, euthymic affect Orientation: cooperative Lymphatic: no cervical or axillary lymphadenopathy no inguinal lymphadenopathy Results & Data Vital Signs (Past 12 Hours) Vital Signs Temp Pulse Resp BP Pulse Ox 01/13/19 15:00 36.8 C 77 20 136/74 96 Laboratory Results BMP 01/13/19 07:03 Creatinine 0.78 Diagnostic Findings Microbiology 01/11/19 15:58 Blood Aerobic Blood Culture - Preliminary No growth in Aerobic bottle after 48 hours. 01/11/19 15:58 Blood Anaerobic Blood Culture - Preliminary No growth in Anaerobic bottle after 48 hours. 01/11/19 16:07 Blood Aerobic Blood Culture - Preliminary No growth in Aerobic bottle after 48 hours. 01/11/19 16:07 Blood Anaerobic Blood Culture - Preliminary No growth in Anaerobic bottle after 48 hours. 01/11/19 11:00 Foot,Left Gram Stain - Final 01/11/19 11:00 Foot,Left Wound Culture - Preliminary Staphylococcus aureus Alpha strep. not enterococcus Haemophilus parainfluenzae
[2019-01-14] MEDS: PIPERACILLIN/TAZOBACTAM 4.5 GM in DEXTROSE 5% 100 ML IV SCH ×3 (04:07→21:34)
[2019-01-14 07:11] LABS: Creatinine Clr Calc Pharmacy 171.3 ml/min; Est GFR (African American) 124.2; Est GFR (Non-African American) 107.1
[2019-01-14] MEDS: MULTIVITAMIN TAB PO SCH (07:58)
[2019-01-14] MEDS: FOLIC ACID 1 MG TAB PO SCH (07:59)
[2019-01-14] MEDS: LISINOPRIL 20 MG TAB PO SCH (07:59)
[2019-01-14] MEDS: THIAMINE HCL 100 MG TAB PO SCH (07:59)
[2019-01-14] MEDS: DAPTOmycin 600 MG in SYRINGE 0 ML IV SCH (12:26)
--- NOTE | 2019-01-14 17:10 | History & Physical Bridge Note ---
Date of Service January 14, 2019 History & Physical Bridge Note I have examined the patient, reviewed the History & Physical and in the interval since the performance of the History & Physical I have noted the following changes of clinical significance: no changes noted
[2019-01-14] MEDS ORDERED: BACITRACIN INJ 50,000 UNIT VIAL ONE (17:40)
[2019-01-14] MEDS ORDERED: BUPIVACAINE 0.5 % 5 MG/1 ML MPF 30ML VIAL ONE (17:40)
--- NOTE | 2019-01-14 17:46 | Anesthesiology Consultation ---
Date of Service January 14, 2019 Assessment & Plan (1) Encounter for pre-operative examination: Chart Review Chart Review: Acceptable Risk for Surgery and Patient NOT seen in Pre Admission Testing Consults Requested none ASA ASA3 Proposed Anesthesia Anesthesia Type: General Risk / Benefits Reviewed With: PT / POA / Parent / Guardian, Accepts Plan and In formed Consent Obtained History Surgery Operation Date: 01/14/19 12:15 Proposed Procedures p Incision and Drainage, Debridement Foot left - Mian Viera DO Height/Weight Height: 6 ft 2 in Weight: 134.2 kg Allergies Allergy/AdvReac Type Severity Reaction Status Date / Time No Known Allergies Allergy Unverified 01/11/19 10:46 Medications Home Medications Medication Instructions Recorded Confirmed Last Taken lisinopril 20 mg PO QAM 01/11/19 01/11/19 01/11/19 Active Medications Generic Name Dose Route Start Last Admin Trade Name Freq PRN Reason Stop Dose Admin Acetaminophen 650 mg 01/11/19 16:34 01/13/19 21:29 Tylenol PO 02/10/19 16:33 650 mg Q4H PRN Administration pain/fever Enoxaparin Sodium 40 mg 01/11/19 18:00 01/13/19 17:41 Lovenox SQ 02/10/19 17:59 Not Given Q24H DIANELYS Folic Acid 1 mg 01/11/19 16:34 01/14/19 07:59 Folvite PO 02/10/19 16:33 1 mg QAM DIANELYS Administration Gadobutrol 13 ml 01/11/19 19:45 01/11/19 19:45 Gadavist 65ml IV 01/15/19 19:44 13 ml ONCE PRN Administration Interaction Checking Daptomycin 600 mg/ Syringe 12 mls @ 6 mls/min 01/12/19 13:00 01/14/19 12:26 IV 02/23/19 12:59 6 mls/min Q24H DIANELYS Administration Protocol Piperacillin Sod/Tazobactam 120 mls @ 30 mls/hr 01/11/19 18:00 01/14/19 16:35 Sod 4.5 gm/ Dextrose IV 01/21/19 17:59 Infused Q8H DIANELYS Infusion Protocol Lisinopril 20 mg 01/12/19 09:00 01/14/19 07:59 Zestril PO 02/11/19 08:59 20 mg QAM DIANELYS Administration Multivitamins 1 tab 01/11/19 16:34 01/14/19 07:58 Multivitamin Tab PO 02/10/19 16:33 1 tab QAM DIANELYS Administration Thiamine HCl 100 mg 01/11/19 16:34 01/14/19 07:59 Vitamin B-1 PO 02/10/19 16:33 100 mg QAM DIANELYS Administration Tramadol HCl 50 mg 01/11/19 16:34 01/11/19 23:41 Ultram PO 02/10/19 16:33 50 mg Q4H PRN Administration Pain NPO Date Last Intake of Fluids: 01/13/19 Time Last Intake of Fluids: 23:00 Last Intake of Fluids Comment: sip of water with AM medications Date Last Intake of Solids: 01/13/19 Time Last Intake of Solids: 23:00 Past Medical History Medical History Tobacco abuse (Chronic) PEARL on CPAP (Chronic) Hypertension (Chronic) Wound of left foot (Chronic) S/P extensive debridement 04/2017 HTN (hypertension) (Chronic) Exercise / Class Metabolic Activity II 4-5 Yardwork/Stairs/Walk up hill Past Family History Family History Father Heart disease Fatal [place] at age 51 Past Surgical History Surgical History S/P right knee arthroscopy (Chronic) History of total left knee replacement (Chronic) Past Anesthesia History No Hx of Anesthesia Complications and No Family Hx of Anesthesia Complications History of PONV No Hx of PONV and No Hx of Motion Sickness Social History Smoking Status: Current every day smoker tobacco type: cigarettes Do You Dip or Chew Tobacco: No Hx Alcohol Use: Yes Alcohol type: beer alcohol intake frequency: a few times a week Alcohol Intake Frequency Comment: Drinks on the weekends. Hx Substance Use: No substance use type: does not use Physical Exam Vital Signs Last Vital Signs Temp 36.8 C 01/14/19 16:48 Pulse 69 01/14/19 16:48 Resp 18 01/14/19 16:48 BP 162/91 H 01/14/19 16:48 Pulse Ox 97 01/14/19 16:48 ENMT Mouth: no dentition abnormality Thyromental Distance: > or= 3.5 Finger Breadths Mallampati Class: II Neck normal visual inspection Respiratory normal respiratory effort Auscultation: lungs clear to auscultation bilaterally Cardiovascular Rate/Rhythm: regular rate and regular rhythm Psychiatric Orientation: alert Testing Laboratory Results 01/12/19 04:57 01/14/19 06:19 PT 10.9 Seconds (9.0-12.0) 01/11/19 11:20 INR 1.1 (0.9-1.1) 01/11/19 11:20 01/11/19 11:00 Gram Stain - Final Foot,Left Wound Culture - Final Staphylococcus aureus Alpha strep. not enterococcus Haemophilus parainfluenzae 01/11/19 15:58 Aerobic Blood Culture - Preliminary Blood No growth in Aerobic bottle after 48 hours. Anaerobic Blood Culture - Preliminary No growth in Anaerobic bottle after 48 hours. 01/11/19 16:07 Aerobic Blood Culture - Preliminary Blood No growth in Aerobic bottle after 48 hours. Anaerobic Blood Culture - Preliminary No growth in Anaerobic bottle after 48 hours.
[2019-01-14] MEDS ORDERED: ePHEDrine sulfate 50 MG/ML AMP IV PRN (17:47)
[2019-01-14] MEDS ORDERED: ATROPINE SULFATE 0.1 MG/ML 10ML SYR IV PRN (17:47)
[2019-01-14] MEDS ORDERED: ONDANSETRON INJ 2 MG/ML 2 ML VIAL IV PRN (17:47)
[2019-01-14] MEDS ORDERED: fentaNYL citrate 100 MCG/2 ML VIAL IV PRN (17:47)
[2019-01-14] MEDS ORDERED: MIDAZOLAM HCL 1 MG/ML 2ML VIAL ONE (17:55)
[2019-01-14] MEDS ORDERED: fentaNYL citrate 100 MCG/2 ML VIAL ONE ×2 (17:55→18:12)
[2019-01-14] MEDS ORDERED: PHENYLEPHRINE HCL 10 MG/ML VIAL ONE (18:43)
[2019-01-14] MEDS ORDERED: LIDOCAINE HCL 2% 2 ML VIAL/AMP(20MG/ML) INFIL ONE (18:43)
[2019-01-14] MEDS ORDERED: ePHEDrine sulfate 50 MG/ML AMP ONE (18:43)
[2019-01-14] MEDS ORDERED: GLYCOPYRROLATE 0.2 MG/ML VIAL ONE (18:43)
[2019-01-14] MEDS: ENOXAPARIN INJ 40 MG/0.4 ML SYR SQ SCH (18:43)
[2019-01-14] MEDS ORDERED: PROPOFOL IV EMULSION 10 MG/ML 20 ML VIAL IV ONE (18:43)
[2019-01-14] MEDS ORDERED: ONDANSETRON INJ 2 MG/ML 2 ML VIAL ONE (18:43)
--- NOTE | 2019-01-14 19:17 | Hospitalist Progress Note ---
Date of Service January 14, 2019 Assessment & Plan (1) Wound of left foot: Left foot osteomyelitis Left foot wound H/O left foot wound after stepping on a nail 04/2017 H/O Neuropathy MRI Left foot: Suggestive of osteomyelitis of proximal metaphysis of the fourth metatarsal; osteitis without evidence of osteomyelitis at the head of the third metatarsal. Erosive changes of the head of the second metatarsal Venous Dopplers: No evidence of DVT Arterial Doppler: Normal ankle-brachial indices Continue IV Dapto and Zosyn Day #4 Wound Culture: Staph aureus, alpha strep not enterococcus, Haemophilus Parainfluenza Blood cultures:No growth to date Orthopedics, infectious disease consulted for input Continue local wound care Pain control Plan for wound Debridement today (2) Hypertension: Stable Continue lisinopril (3) PEARL on CPAP: CPAP as per home settings Qhs (4) Tobacco abuse: Counseled tobacco cessation (5) Alcohol abuse: No signs of withdrawal Continue thiamine, folic acid (6) DVT prophylaxis: SQ Lovenox Subjective Patient is seen and examined at bedside States feeling a lot better today Denies any foot pain Plan for debridement of the wound today Offers no other complaints Family at bedside Denies any chest pain, shortness of breath, dizziness, nausea, abdominal pain Review of Systems Review of Systems: All systems reviewed & are unremarkable except as noted in HPI & below Physical Exam Physical Exam: Physical Exam: Vitals signs as noted above General Appearance:Obese, no apparent distress Head: normocephalic, Atraumatic Eyes: normal inspection, EOMI Neck: supple, Trachea midline Respiratory/Chest: Normal breath sounds, CTA Cardiovascular: S1, S2, No murmur Abdomen/GI:Soft, Non tender, Bowel sounds present Extremities/Musculoskelatal:normal inspection, chronic venous stasis changes, left foot -wound on plantar surface-- in dressing Neurologic/Psych:AAOX3, grossly no focal neurological deficits Skin: normal color, warm Results & Data Vital Signs (Past 12 Hours) Vital Signs Temp Pulse Resp BP Pulse Ox 01/14/19 16:48 36.8 C 69 18 162/91 H 97 01/14/19 15:00 36.3 C L 63 18 135/82 97 01/14/19 07:56 151/89 H 01/14/19 07:33 36.0 C L 69 18 167/106 H 97 Laboratory Results BMP 01/14/19 06:19 Creatinine 0.76
--- NOTE | 2019-01-14 19:32 | Infectious Disease Progress Nt ---
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 Will likely require surgical debridement, await orthopedic surgery consultation. For now we will continue IV antibiotics pending culture results. Will follow. Subjective Patient is seen and examined at bedside States feeling a lot better today Denies any foot pain Plan for debridement of the wound today Offers no other complaints Family at bedside Denies any chest pain, shortness of breath, dizziness, nausea, abdominal pain Physical Exam Constitutional: WD/WN, vitals as above + obese and comfortable; no acute distress Eyes: PERRL, conjunctivae normal, anicteric sclerae ENMT: external ear and nose normal, oropharynx normal Neck: trachea midline, no thyromegaly neck nontender Respiratory: normal respiratory effort, lungs clear to auscultation normal percussion; does not use accessory muscles Cardiovascular: Rate/Rhythm: regular rate and regular rhythm Heart Sounds: normal S1 and normal S2; no gallop, no murmur and no cardiac rub Vessels: normal peripheral pulses; no JVD Gastrointestinal (Abdomen): normal bowel sounds, soft, nontender, no hepatosplenomegaly Musculoskeletal: no cyanosis or clubbing, extremities motor strength 5/5 Spine: thoracic spine normal to inspection and lumbar spine normal to inspection; no cervical spinal tenderness Skin: normal turgor and + ulcer (Plantar surface left foot with some purulent drainage) Neurologic: patellar DTR's 2+ bilat, sensation intact no focal motor deficits Psychiatric: A+Ox3, euthymic affect Orientation: cooperative Lymphatic: no cervical or axillary lymphadenopathy no inguinal lymphadenopathy Results & Data Vital Signs (Past 12 Hours) Vital Signs Temp Pulse Resp BP Pulse Ox 01/14/19 16:48 36.8 C 69 18 162/91 H 97 01/14/19 15:00 36.3 C L 63 18 135/82 97 01/14/19 07:56 151/89 H 01/14/19 07:33 36.0 C L 69 18 167/106 H 97 Laboratory Results BMP 01/14/19 06:19 Creatinine 0.76 Diagnostic Findings Microbiology 01/11/19 11:00 Foot,Left Gram Stain - Final 01/11/19 11:00 Foot,Left Wound Culture - Final Staphylococcus aureus Alpha strep. not enterococcus Haemophilus parainfluenzae 01/11/19 15:58 Blood Aerobic Blood Culture - Preliminary No growth in Aerobic bottle after 48 hours. 01/11/19 15:58 Blood Anaerobic Blood Culture - Preliminary No growth in Anaerobic bottle after 48 hours. 01/11/19 16:07 Blood Aerobic Blood Culture - Preliminary No growth in Aerobic bottle after 48 hours. 01/11/19 16:07 Blood Anaerobic Blood Culture - Preliminary No growth in Anaerobic bottle after 48 hours.
--- NOTE | 2019-01-14 19:46 | Post Operative Brief Note ---
Immediate Post Op Note v1 Date of Surgery January 14, 2019 Pre & Post Diagnosis Operation Date: 01/14/19 12:15 Pre-Op Diagnosis: Left Foot osteomyelitis second metatarsal phalangeal joint, osteomyelitis third metatarsal head, deep abscess plantar foot, neuropathic ulcer entheses (4 x 3 cm) plantar forefoot, deep infection involving skin/fascia/flexor tendon left foot wound, spike nail deformity great toe Post-Op Diagnosis: Left Foot osteomyelitis second metatarsal phalangeal joint, osteomyelitis third metatarsal head, deep abscess plantar foot, neuropathic ulcer entheses (4 x 3 cm) plantar forefoot, deep infection involving skin/fascia/flexor tendon left foot wound, spike nail deformity great toe Procedure Operation Date: 01/14/19 12:15 Actual Procedures p Resection arthroplasty second metatarsal phalangeal joint, resection of third metatarsal head, irrigation and debridement neuropathic plantar ulcer left foot including skin/fascia and flexor tendon, incision and drainage deep forefoot abscess, removal spike nail deformity great toe (Left) - Mian Viera DO Surgeon Mian Viera DO Line Supervisor None Estimated Blood Loss 2 Findings Consistent with Post-Op Diagnosis Specimens Left second metatarsal head Left third metatarsal head Left foot aerobic anaerobic Gram stain deep abscess forefoot Drains Other (1/2 inch iodoform gauze x2) Anesthesia Type General Complications none Disposition Accompanied Patient To Recovery: Yes Disposition: Recovery Room
--- NOTE | 2019-01-14 20:26 | Anesthesiology Progress Note ---
Date of Service January 14, 2019 Anesthesia Post Procedure Vital Signs Vital Signs: Temp Pulse Resp BP Pulse Ox 01/14/19 19:55 36.2 C L 81 23 156/95 H 100 01/14/19 19:45 36.2 C L 80 23 131/93 97 01/14/19 19:35 36.2 C L 83 24 164/90 H 97 01/14/19 16:48 36.8 C 69 18 162/91 H 97 01/14/19 15:00 36.3 C L 63 18 135/82 97 01/14/19 07:56 151/89 H 01/14/19 07:33 36.0 C L 69 18 167/106 H 97 01/13/19 23:00 36.5 C 64 22 149/83 H 96 Pain Intensity Left Foot: Pain Intensity: 6 Transfer of Care Handoff Completed per policy Notes Mental Status: alert / awake / arousable Patient Amnestic to Procedure: Yes Nausea / Vomiting: adequately controlled Pain: adequately controlled Airway Patency, RR, SpO2: stable & adequate BP & HR: stable & adequate Hydration State: stable & adequate Anesthetic Complications: no major complications apparent
[2019-01-14] MEDS: MoRPHine SULFATE 4 MG/ML 1 ML CARP\\VIAL IV PRN (21:37)
--- NOTE | 2019-01-15 00:43 | Operative Report ---
DATE OF OPERATION: 01/14/2019 PREOPERATIVE DIAGNOSES: 1. Left foot osteomyelitis of the second metatarsophalangeal joint. 2. Osteomyelitis of the third metatarsal head. 3. Abscess deep forefoot. 4. Neuropathic ulcer (4 x 3 cm plantar forefoot. 5. Plantar infection involving skins/fascia and flexor tendon. POSTOPERATIVE DIAGNOSES: 1. Left foot osteomyelitis of the second metatarsophalangeal joint. 2. Osteomyelitis of the third metatarsal head. 3. Abscess deep forefoot. 4. Neuropathic ulcer (4 x 3 cm plantar forefoot. 5. Plantar infection involving skins/fascia and flexor tendon. 6. [place] nail deformity great toe. PROCEDURES: 1. Left foot resection arthroplasty of the second metatarsophalangeal joint. 2. Resection of the third metatarsal head. 3. Incision and drainage abscess deep forefoot. 4. Irrigation and debridement, neuropathic ulcer measuring 4 x 3 cm involving skin, fascia and tendon. 5. Removal spike nail deformity great toe. SURGEON: Mian Viera DO CREW MEMBER: None. ANESTHESIA: General with local. SPECIMENS: 1. Aerobic, anaerobic, Gram stain abscess, left deep forefoot. 2. Metatarsal head #2. 3. Metatarsal head #3. DRAINS: Iodoform gauze 1/2 inch x2, one dorsal, one plantar. COMPLICATIONS: None. BLOOD LOSS: 2 mL. PERTINENT HISTORY: This is a 48-year-old gentleman who had previous abscess and irrigation and debridement performed in [place] in 2016. 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 He had a re-ulceration in September of this year and then eventually was admitted to [facility] 3 days ago. He had open ulcer and he has been treating this conservatively. The patient has had pain and swelling and was admitted to the hospital and placed on I.V. antibiotics and had some improvement; however, MRI demonstrated features suspicious for chronic osteomyelitis. The patient is scheduled for surgery as indicated. All potential risks, benefits, complications, alternatives, rehab, potential for incomplete relief of symptoms, need for further surgery, deep venous thrombosis, pulmonary embolism, , persistent pain, swelling, scarring, weakness, neurovascular injury and wound complications were discussed with the patient. The patient decided to the proceed with the procedure as indicated. DESCRIPTION OF PROCEDURE: The patient was taken to the operative suite and placed supine on the operating table. After review of consent and identification of proper operative site, the patient was anesthetized, a tourniquet was placed on left thigh over cast padding; however, was not used during the case. Next, left lower extremity was then sterilely prepped and draped in usual fashion, elevated and partially exsanguinated from the heel extending proximally using Esmarch bandage and Esmarch tourniquet was applied over sterile surgical towel at the level of the ankle. Next, a 15 blade scalpel was used to sharply debride the plantar ulcer measuring 4 x 3 cm of the left forefoot. This was debrided through skin and fascia and there was also noted to be flexor tendon present. This was resected with a 15 blade scalpel and rongeur. Next, the rongeur was then used to debride any further devitalized tissue and the plantar ulcer was then revised with resection of an ellipse of tissue both proximal and distal aspect to allow for closure of the space of the ulceration which was full thickness. There is communication to the third metatarsophalangeal joint. Next, attention was then directed toward the dorsum of the foot. There was a spike nail deformity in the great toe which was then resected using a rongeur. The attention was then directed toward the interval between the second and third metatarsal heads. A 15 blade scalpel was used to make an incision in the interval between the second and third metatarsal heads. The incision was deepened through subcutaneous tissue. Meticulous hemostasis was achieved with electrocautery. Careful dissection was performed down to the level of the second extensor tendon with a tenotomy scissor and a Weitlaner was then placed in the incision. Second extensor tendon was then identified, freed with a tenotomy scissor and retracted medially followed by incision of the second metatarsophalangeal joint. Next, second metatarsal head was noted to be significantly softened and features consistent with osteomyelitis. There was fragmentation of the second metatarsal head with a significant amount of fluid. The head was then resected using a sagittal saw. The head was then resected. Also noted to be significant softening in the base of the second proximal phalanx. This was consistent with osteomyelitis. This was resected using a sagittal saw. The proximal portion of the second proximal phalanx was then resected using a rongeur. This was passed off as specimen. Incision was then transitioned laterally over the third metatarsal head. There was noted to be an abscess fluid collection here. At this point, the abscess fluid was then cultured, aerobic, anaerobic, Gram stain and sent off as specimen. Next, the third extensor tendon was then identified, freed and retracted laterally with Weitlaner and the third metatarsophalangeal joint was entered with a 15 blade scalpel. There was noted to be significant fluid within the joint with communication to the plantar foot. This was done with probing with a [place]un[place] elevator. Next, the third metatarsal head was noted to be significantly softened using a simple probe and the third metatarsal head was then resected using a sagittal saw. Next, the pulsatile lavage, 3 liters with bacitracin was used to lavage both the dorsal and plantar incisions. This was performed until clear. Once this was completed, 1/2 inch iodoform gauze drains were placed, both dorsal and the plantar. The plantar incision was closed loosely with interrupted 3-0 nylon. The dorsal incision was closed loosely with interrupted 3-0 nylon sutures. A sterile compressive dressing was applied overwrapped with an Dipesh wrap. The tourniquet was released after local anesthetic was injected along the dorsal aspect of the foot approximately 10 mL of 0.5% Marcaine plain. Next, a sterile compressive dressing was applied. Dipesh wrap was applied. The tourniquet was released. The patient was awakened and taken to recovery in a stable condition. I attest to the content of the Intraoperative Record and any orders documented therein. Any exception s are noted below.
[2019-01-15] MEDS: PIPERACILLIN/TAZOBACTAM 4.5 GM in DEXTROSE 5% 100 ML IV SCH ×3 (04:16→19:54)
[2019-01-15 06:50] LABS: Hematocrit (blood only) 41.3 % (42-52); Hemoglobin 14.1 g/dL (14.0-18.0); Mean Corpuscular Hgb Conc 34.1 g/dL (32-36); Mean Corpuscular Volume 92.4 fL (80-100); Mean Platelet Volume 8.7 fL (7.4-10.4); Platelet Count 316 K/uL (130-400); RDW Coefficient of Variation 13.9 % (11.5-14.5); Red Blood Count 4.47 M/uL (4.7-6.1); White Blood Count 13.53 K/uL (4.8-10.8)
[2019-01-15 07:18] LABS: BUN Creatinine Ratio 12.2 (10-20); Calcium 8.7 mg/dl (8.5-10.1); Creatinine Clr Calc Pharmacy 156.8 ml/min; Est GFR (African American) 119.7; Est GFR (Non-African American) 103.3; Potassium 4.2 mmol/L (3.5-5.1)
[2019-01-15] MEDS: TRAMADOL HCL 50 MG TABLET PO PRN (07:37)
[2019-01-15] MEDS: MULTIVITAMIN TAB PO SCH (08:17)
[2019-01-15] MEDS: FOLIC ACID 1 MG TAB PO SCH (08:17)
[2019-01-15] MEDS: LISINOPRIL 20 MG TAB PO SCH (08:17)
[2019-01-15] MEDS: THIAMINE HCL 100 MG TAB PO SCH (08:18)
--- NOTE | 2019-01-15 09:09 | Progress Note ---
DATE: 01/15/2019 SUBJECTIVE: The patient is postop day #1 status post I&D of his left foot as well as metatarsal head resection of the third metatarsal head and second metatarsal arthroplasty. Currently, the patient is sitting up at the bedside with his legs dangling over the side of the bed. He is awake and alert and oriented. He has no complaints this morning and pain is controlled. He denies any shortness of breath, chest pain or lightheadedness. OBJECTIVE: Dressings are clean, dry and intact. Toes are mobile and he has good sensation. Capillary refill is less than 2 seconds. ASSESSMENT: I&D, left foot with resection of second metatarsal arthroplasty and third metatarsal head resection. PLAN: Continue dressings today. We will plan for dressing change tomorrow with beginning of removal of packing over the next several days. He will be continued on IV antibiotics as per medicine and ID team and he should try to limit weightbearing on the foot at this time to the heel only.
[2019-01-15] MEDS: MoRPHine SULFATE 4 MG/ML 1 ML CARP\\VIAL IV PRN ×2 (10:07→19:54)
--- NOTE | 2019-01-15 11:11 | Anesthesiology Progress Note ---
Date of Service January 15, 2019 Anesthesia Post Procedure Vital Signs Vital Signs: Temp Pulse Resp BP BP Pulse Ox 01/15/19 07:00 36.4 C L 66 20 127/79 93 01/15/19 04:00 36.4 C L 66 20 120/73 97 01/14/19 22:25 36.7 C 70 21 129/79 96 01/14/19 21:25 36.6 C 73 21 167/93 H 94 01/14/19 20:55 36.9 C 76 20 150/98 H 93 01/14/19 20:25 36.6 C 71 20 151/88 H 96 01/14/19 19:55 36.2 C L 81 23 156/95 H 100 01/14/19 19:45 36.2 C L 80 23 131/93 97 01/14/19 19:35 36.2 C L 83 24 164/90 H 97 01/14/19 16:48 36.8 C 69 18 162/91 H 97 01/14/19 15:00 36.3 C L 63 18 135/82 97 Pain Intensity Left Foot: Pain Intensity: 7 Transfer of Care Handoff Completed per policy Notes Mental Status: alert / awake / arousable and participated in evaluation Patient Amnestic to Procedure: Yes Nausea / Vomiting: adequately controlled Pain: adequately controlled Airway Patency, RR, SpO2: stable & adequate BP & HR: stable & adequate Hydration State: stable & adequate Anesthetic Complications: no major complications apparent
[2019-01-15] MEDS: DAPTOmycin 600 MG in SYRINGE 0 ML IV SCH (13:02)
--- NOTE | 2019-01-15 16:25 | Hospitalist Progress Note ---
Date of Service January 15, 2019 Assessment & Plan (1) Wound of left foot: Left foot osteomyelitis Left foot wound H/O left foot wound after stepping on a nail 04/2017 H/O Neuropathy MRI Left foot: Suggestive of osteomyelitis of proximal metaphysis of the fourth metatarsal; osteitis without evidence of osteomyelitis at the head of the third metatarsal. Erosive changes of the head of the second metatarsal Venous Dopplers: No evidence of DVT Arterial Doppler: Normal ankle-brachial indices S/P incision and drainage, left foot--second metatarsal arthroplasty and third metatarsal head resection POD #1 Continue IV Dapto and Zosyn Day #5 Wound Culture: Staph aureus, alpha strep not enterococcus, Haemophilus Parainfluenza Deep Wound Culture: Staph aureus Blood cultures:No growth to date Appreciate Orthopedics, ID input Continue local wound care Pain control (2) Hypertension: Stable Continue lisinopril (3) PEARL on CPAP: CPAP as per home settings Qhs (4) Tobacco abuse: Counseled tobacco cessation (5) Alcohol abuse: No signs of withdrawal Continue thiamine, folic acid (6) DVT prophylaxis: SQ Lovenox Subjective Patient is seen and examined at bedside Complains of left foot pain at surgical site Offers no other complaints Denies any chest pain, shortness of breath, dizziness, nausea, abdominal pain Review of Systems Review of Systems: All systems reviewed & are unremarkable except as noted in HPI & below Physical Exam Physical Exam: Physical Exam: Vitals signs as noted above General Appearance:Obese, no apparent distress Head: normocephalic, Atraumatic Eyes: normal inspection, EOMI Neck: supple, Trachea midline Respiratory/Chest: Normal breath sounds, CTA Cardiovascular: S1, S2, No murmur Abdomen/GI:Soft, Non tender, Bowel sounds present Extremities/Musculoskelatal:normal inspection, chronic venous stasis changes, left foot in dressing Neurologic/Psych:AAOX3, grossly no focal neurological deficits Skin: normal color, warm Results & Data Vital Signs (Past 12 Hours) Vital Signs Temp Pulse Resp BP Pulse Ox 01/15/19 07:00 36.4 C L 66 20 127/79 93 Laboratory Results Short CBC 01/15/19 Range/Units 06:16 WBC 13.53 H (4.8-10.8) K/uL Hgb 14.1 (14.0-18.0) g/dL Hct 41.3 L (42-52) % Plt Count 316 (130-400) K/uL BMP 01/15/19 06:16 Sodium 137 Potassium 4.2 Chloride 104 Carbon Dioxide 26 BUN 10 Creatinine 0.83 Glucose 100 H Calcium 8.7
[2019-01-15] MEDS: ENOXAPARIN INJ 40 MG/0.4 ML SYR SQ SCH (17:34)
[2019-01-15 18:03] LABS: Creatinine Clr Calc Pharmacy 132.8 ml/min; Est GFR (African American) 104.5; Est GFR (Non-African American) 90.2
[2019-01-16] MEDS: PIPERACILLIN/TAZOBACTAM 4.5 GM in DEXTROSE 5% 100 ML IV SCH ×3 (04:11→20:30)
[2019-01-16] MEDS: TRAMADOL HCL 50 MG TABLET PO PRN (05:59)
[2019-01-16 06:37] LABS: Hematocrit (blood only) 41.9 % (42-52); Hemoglobin 14.4 g/dL (14.0-18.0); Mean Corpuscular Hgb Conc 34.4 g/dL (32-36); Mean Corpuscular Volume 90.9 fL (80-100); Mean Platelet Volume 8.7 fL (7.4-10.4); Platelet Count 311 K/uL (130-400); RDW Coefficient of Variation 13.9 % (11.5-14.5); RDW Standard Deviation 46.3 fL (36.4-46.3); Red Blood Count 4.61 M/uL (4.7-6.1); White Blood Count 11.31 K/uL (4.8-10.8)
[2019-01-16] MEDS: MoRPHine SULFATE 4 MG/ML 1 ML CARP\\VIAL IV PRN ×3 (08:31→20:31)
[2019-01-16] MEDS: MULTIVITAMIN TAB PO SCH (08:32)
[2019-01-16] MEDS: LISINOPRIL 20 MG TAB PO SCH (08:32)
[2019-01-16] MEDS: THIAMINE HCL 100 MG TAB PO SCH (08:33)
[2019-01-16] MEDS: FOLIC ACID 1 MG TAB PO SCH (08:33)
--- NOTE | 2019-01-16 09:26 | Progress Note ---
DATE: 01/16/2019 SUBJECTIVE: The patient is postop day #2 status post I&D of his left foot. Currently, he is sitting at the bedside and has no complaints at this time. Pain is controlled and he denies any shortness of breath, chest pain or lightheadedness. OBJECTIVE: EXTREMITIES: The patient then got himself back into the bed and at that point, the dressing was removed. Two incisions are noted, one on the dorsal aspect and one on the plantar aspect of the foot, both have iodoform packing. He has moderate swelling noted at this time and he is able to move the toes and has good sensation. Some of the skin is mottled on the plantar wound on one of the edge of the skin, but otherwise there is no overt erythema and/or gross purulence. Approximately 8 inches of packing was removed from the dorsal wound and there continues to be some packing in that wound at this time. Upon removal of that inch of the packing, some bloody serous drainage did come out that was minimal in amount. All of the packing was removed out of the plantar aspect wound and there was no gross purulence or serous drainage noted after packing removal. Adaptic and 4 x 4's were then placed on both wounds and wrapped with Kerlix and with a 6-inch Dipesh wrap. ASSESSMENT: Irrigation and debridement, left foot with resection of segment of metatarsal arthroplasty and third metatarsal head resection. PLAN: Continue IV antibiotics as per medicine service and ID team. We will do no dressing change tomorrow and hopefully remove all the remainder of the packing. The patient states that they are planning for PICC line and IV antibiotics which will be arranged through case management and through medical service and ID team.
--- NOTE | 2019-01-16 10:06 | Communication Note ---
Date of Service: January 16, 2019 OR cultures as noted below Microbiology 01/14/19 18:28 Foot,Left Gram Stain - Final 01/14/19 18:28 Foot,Left Aerobic and Anaerobic Culture - Preliminary Staphylococcus aureus -MSSA
[2019-01-16] MEDS: DAPTOmycin 600 MG in SYRINGE 0 ML IV SCH (12:27)
[2019-01-16] MEDS: ENOXAPARIN INJ 40 MG/0.4 ML SYR SQ SCH (17:47)
--- NOTE | 2019-01-16 18:43 | Hospitalist Progress Note ---
Date of Service January 16, 2019 Assessment & Plan (1) Wound of left foot: Left foot osteomyelitis Left foot wound H/O left foot wound after stepping on a nail 04/2017 H/O Neuropathy MRI Left foot: Suggestive of osteomyelitis of proximal metaphysis of the fourth metatarsal; osteitis without evidence of osteomyelitis at the head of the third metatarsal. Erosive changes of the head of the second metatarsal Venous Dopplers: No evidence of DVT Arterial Doppler: Normal ankle-brachial indices S/P incision and drainage, left foot--second metatarsal arthroplasty and third metatarsal head resection POD #2 Continue IV Dapto and Zosyn Day #6 Wound Culture: Staph aureus, alpha strep not enterococcus, Haemophilus Parainfluenza Deep Wound Culture: Pansensitive staph aureus Blood cultures:No growth to date Appreciate Orthopedics, ID input Continue local wound care as per Ortho Pain control is controlled Will discuss with ID tomorrow regarding antibiotic therapy (2) Hypertension: Stable Continue lisinopril (3) PEARL on CPAP: CPAP as per home settings Qhs (4) Tobacco abuse: Counseled tobacco cessation (5) Alcohol abuse: No signs of withdrawal Continue thiamine, folic acid (6) DVT prophylaxis: SQ Lovenox Subjective Patient is seen and examined at bedside Leg pain is better controlled today Had dressing changed today No new complaints Denies any chest pain, shortness of breath, dizziness, nausea, abdominal pain Review of Systems Review of Systems: All systems reviewed & are unremarkable except as noted in HPI & below Physical Exam Physical Exam: Physical Exam: Vitals signs as noted above General Appearance:Obese, no apparent distress Head: normocephalic, Atraumatic Eyes: normal inspection, EOMI Neck: supple, Trachea midline Respiratory/Chest: Normal breath sounds, CTA Cardiovascular: S1, S2, No murmur Abdomen/GI:Soft, Non tender, Bowel sounds present Extremities/Musculoskelatal:normal inspection, chronic venous stasis changes, left foot in dressing Neurologic/Psych:AAOX3, grossly no focal neurological deficits Skin: normal color, warm Results & Data Vital Signs (Past 12 Hours) Vital Signs Temp Pulse Resp BP BP Pulse Ox 01/16/19 15:55 36.8 C 69 20 138/90 93 01/16/19 07:28 36.3 C L 71 20 115/78 95 Laboratory Results Short CBC 01/16/19 Range/Units 06:05 WBC 11.31 H (4.8-10.8) K/uL Hgb 14.4 (14.0-18.0) g/dL Hct 41.9 L (42-52) % Plt Count 311 (130-400) K/uL
[2019-01-17] MEDS: PIPERACILLIN/TAZOBACTAM 4.5 GM in DEXTROSE 5% 100 ML IV SCH ×3 (04:13→20:03)
[2019-01-17 07:06] LABS: Hematocrit (blood only) 40.6 % (42-52); Hemoglobin 14.1 g/dL (14.0-18.0); Mean Corpuscular Hgb Conc 34.7 g/dL (32-36); Mean Corpuscular Volume 92.1 fL (80-100); Mean Platelet Volume 8.7 fL (7.4-10.4); Platelet Count 338 K/uL (130-400); RDW Coefficient of Variation 13.6 % (11.5-14.5); RDW Standard Deviation 45.9 fL (36.4-46.3); Red Blood Count 4.41 M/uL (4.7-6.1); White Blood Count 9.13 K/uL (4.8-10.8)
[2019-01-17 07:36] LABS: BUN Creatinine Ratio 13.6 (10-20); Calcium 9.3 mg/dl (8.5-10.1); Creatinine Clr Calc Pharmacy 166.9 ml/min; Est GFR (African American) 122.8; Potassium 4.2 mmol/L (3.5-5.1)
--- NOTE | 2019-01-17 08:09 | Orthopedic Progress Note ---
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 Left foot resection arthroplasty of the second metatarsophalangeal joint. 2. Resection of the third metatarsal head. 3. Incision and drainage abscess deep forefoot. 4. Irrigation and debridement, neuropathic ulcer measuring 4 x 3 cm involving skin, fascia and tendon. 5. Removal spike nail deformity great toe. Dressing changed today. The rest of the dorsal foot packing was removed--~8 inches. Mild sanguinous drainage. No purulence. NWB LLE at all times. May consider forefoot offloading post op shoe at a later time. Stable from ortho standpoint and no further surgical tx at this time. Ortho to sign off and will follow up with Dr. Viera's clinic in 1 week. Daily dressing changes with Adaptic cut to the size of the incisions, gauze, dorsal ABD prn if there is drainage from packing site, kerlix wrap. IV ABX per ID/medicine team. Subjective Overall, doing well. Left foot is feeling significantly better. Generally, he is feeling better. Has been NWB LLE. No other complaints. No CP, SOB, LH. Physical Exam Constitutional: WD/WN, vitals as above Musculoskeletal: Left foot: mild swelling. Minimal erythema at the dorsal foot incision. The dorsal and plantar incisions are well approximated. The last of the dorsal foot packing was removed today. NV intact LLE with ability to move toes. Psychiatric: A+Ox3, euthymic affect Results & Data Vital Signs (Past 12 Hours) Vital Signs Temp Pulse Resp BP Pulse Ox 01/17/19 07:30 36.4 C L 69 18 154/84 H 94 01/16/19 23:24 36.7 C 59 L 20 148/61 H 96
[2019-01-17] MEDS: MULTIVITAMIN TAB PO SCH (08:50)
[2019-01-17] MEDS: MoRPHine SULFATE 4 MG/ML 1 ML CARP\\VIAL IV PRN ×3 (08:50→20:10)
[2019-01-17] MEDS: THIAMINE HCL 100 MG TAB PO SCH (08:50)
[2019-01-17] MEDS: FOLIC ACID 1 MG TAB PO SCH (08:51)
[2019-01-17] MEDS: LISINOPRIL 20 MG TAB PO SCH (08:51)
--- NOTE | 2019-01-17 10:58 | Anesthesiology Progress Note ---
Date of Service January 17, 2019 Anesthesia Post Procedure Vital Signs Vital Signs: Temp Pulse Resp BP BP Pulse Ox 01/17/19 07:30 36.4 C L 69 18 154/84 H 94 01/16/19 23:24 36.7 C 59 L 20 148/61 H 96 01/16/19 15:55 36.8 C 69 20 138/90 93 Pain Intensity Left Foot: Pain Intensity: 6 Notes Mental Status: alert / awake / arousable Patient Amnestic to Procedure: Yes Nausea / Vomiting: adequately controlled Pain: improving with treatment Airway Patency, RR, SpO2: stable & adequate BP & HR: stable & adequate Hydration State: stable & adequate Anesthetic Complications: no major complications apparent
--- NOTE | 2019-01-17 14:58 | XRay Report ---
XR chest 1V portable CLINICAL HISTORY: right PICC tip placement, unable to bullseye COMPARISON STUDY: No previous studies for comparison. FINDINGS: The heart is mildly enlarged. There is no focal pulmonary consolidation. There are no pleur al effusions. There is no pneumothorax.[The right-sided PICC catheter appears looped at the subclavia n level with the tip extending into the upper arm, or chest wall.. Repositioning is recommended. IMPRESSION: Malpositioned right-sided PICC catheter which is looped back with its tip extending into the upper arm or chest wall. Electronically signed by: Cole Little M.D. 01/17/2019 2:57 PM
--- NOTE | 2019-01-17 15:15 | Infectious Disease Progress Nt ---
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 Patient to be treated with IV ceftriaxone 2 g daily, likely will need 6 weeks of IV antibiotics. PICC line to be placed. Subjective Overall, doing well. Left foot is feeling significantly better. Generally, he is feeling better. Has been NWB LLE. No other complaints. No CP, SOB, LH. Review of Systems Review of Systems: All systems reviewed & are unremarkable except as noted in HPI & below Physical Exam Constitutional: WD/WN, vitals as above + obese and comfortable; no acute distress Eyes: PERRL, conjunctivae normal, anicteric sclerae ENMT: external ear and nose normal, oropharynx normal Neck: trachea midline, no thyromegaly neck nontender Respiratory: normal respiratory effort, lungs clear to auscultation normal percussion; does not use accessory muscles Cardiovascular: Rate/Rhythm: regular rate and regular rhythm Heart Sounds: normal S1 and normal S2; no gallop, no murmur and no cardiac rub Vessels: normal peripheral pulses; no JVD Gastrointestinal (Abdomen): normal bowel sounds, soft, nontender, no hepatosplenomegaly Musculoskeletal: no cyanosis or clubbing, extremities motor strength 5/5 Spine: thoracic spine normal to inspection and lumbar spine normal to inspection; no cervical spinal tenderness Skin: normal turgor and + wound (Surgical dressing intact left foot) Neurologic: patellar DTR's 2+ bilat, sensation intact no focal motor deficits Psychiatric: A+Ox3, euthymic affect Orientation: cooperative Lymphatic: no cervical or axillary lymphadenopathy no inguinal lymphadenopathy Results & Data Vital Signs (Past 12 Hours) Vital Signs Temp Pulse Resp BP Pulse Ox 01/17/19 07:30 36.4 C L 69 18 154/84 H 94 Laboratory Results Short CBC 01/17/19 Range/Units 06:22 WBC 9.13 (4.8-10.8) K/uL Hgb 14.1 (14.0-18.0) g/dL Hct 40.6 L (42-52) % Plt Count 338 (130-400) K/uL [facility] 01/17/19 06:22 Sodium 136 Potassium 4.2 Chloride 102 Carbon Dioxide 25 BUN 11 Creatinine 0.78 Glucose 98 Calcium 9.3 Diagnostic Findings Microbiology 01/14/19 18:28 Foot,Left Gram Stain - Final 01/14/19 18:28 Foot,Left Aerobic and Anaerobic Culture - Preliminary Staphylococcus aureus 01/11/19 15:58 Blood Aerobic Blood Culture - Final No growth in Aerobic bottle after 5 days. 01/11/19 15:58 Blood Anaerobic Blood Culture - Final No growth in Anaerobic bottle after 5 days. 01/11/19 16:07 Blood Aerobic Blood Culture - Final No growth in Aerobic bottle after 5 days. 01/11/19 16:07 Blood Anaerobic Blood Culture - Final No growth in Anaerobic bottle after 5 days. 01/11/19 11:00 Foot,Left Gram Stain - Final 01/11/19 11:00 Foot,Left Wound Culture - Final Staphylococcus aureus Alpha strep. not enterococcus Haemophilus parainfluenzae
--- NOTE | 2019-01-17 17:38 | Hospitalist Progress Note ---
Date of Service January 17, 2019 Assessment & Plan (1) Wound of left foot: Left foot osteomyelitis Left foot wound H/O left foot wound after stepping on a nail 04/2017 H/O Neuropathy MRI Left foot: Suggestive of osteomyelitis of proximal metaphysis of the fourth metatarsal; osteitis without evidence of osteomyelitis at the head of the third metatarsal. Erosive changes of the head of the second metatarsal Venous Dopplers: No evidence of DVT Arterial Doppler: Normal ankle-brachial indices S/P incision and drainage, left foot--second metatarsal arthroplasty and third metatarsal head resection POD #3 Continue IV Dapto and Zosyn Day #6>> transition to IV ceftriaxone Wound Culture: Staph aureus, alpha strep not enterococcus, Haemophilus Parainfluenza Deep Wound Culture: Pansensitive staph aureus Blood cultures:No growth to date Appreciate Orthopedics, ID input Continue local wound care as per Ortho Pain control is controlled PICC line placed Needs IV antibiotics for a duration of 6 weeks (2) Hypertension: Stable Continue lisinopril (3) PEARL on CPAP: CPAP as per home settings Qhs (4) Tobacco abuse: Counseled tobacco cessation (5) Alcohol abuse: No signs of withdrawal Continue thiamine, folic acid (6) DVT prophylaxis: SQ Lovenox Disposition Needs home health arranged for IV antibiotics Case management following Subjective Patient is seen and examined at bedside Patient had dressing changed today Leg pain is controlled Discussed with ID today Had PICC line placement No new complaints Denies any chest pain, shortness of breath, dizziness, nausea, abdominal pain Review of Systems Review of Systems: All systems reviewed & are unremarkable except as noted in HPI & below Physical Exam Physical Exam: Physical Exam: Vitals signs as noted above General Appearance:Obese, no apparent distress Head: normocephalic, Atraumatic Eyes: normal inspection, EOMI Neck: supple, Trachea midline Respiratory/Chest: Normal breath sounds, CTA Cardiovascular: S1, S2, No murmur Abdomen/GI:Soft, Non tender, Bowel sounds present Extremities/Musculoskelatal:normal inspection, chronic venous stasis changes, left foot in dressing Neurologic/Psych:AAOX3, grossly no focal neurological deficits Skin: normal color, warm Results & Data Vital Signs (Past 12 Hours) Vital Signs Temp Pulse Resp BP Pulse Ox 01/17/19 07:30 36.4 C L 69 18 154/84 H 94 Laboratory Results Short CBC 01/17/19 Range/Units 06:22 WBC 9.13 (4.8-10.8) K/uL Hgb 14.1 (14.0-18.0) g/dL Hct 40.6 L (42-52) % Plt Count 338 (130-400) K/uL [facility] 01/17/19 06:22 Sodium 136 Potassium 4.2 Chloride 102 Carbon Dioxide 25 BUN 11 Creatinine 0.78 Glucose 98 Calcium 9.3
[2019-01-17] MEDS: ENOXAPARIN INJ 40 MG/0.4 ML SYR SQ SCH (17:47)
[2019-01-18] MEDS: MoRPHine SULFATE 4 MG/ML 1 ML CARP\\VIAL IV PRN ×2 (04:24→11:39)
[2019-01-18] MEDS: LISINOPRIL 20 MG TAB PO SCH (08:36)
[2019-01-18] MEDS: FOLIC ACID 1 MG TAB PO SCH (08:36)
[2019-01-18] MEDS: MULTIVITAMIN TAB PO SCH (08:36)
[2019-01-18] MEDS: THIAMINE HCL 100 MG TAB PO SCH (08:36)
[2019-01-18] MEDS ORDERED: cefTRIAXone SODIUM 2,000 MG in DEXTROSE 5% 50 ML IV SCH (09:00)
--- NOTE | 2019-01-18 14:46 | Hospitalist Progress Note ---
Date of Service January 18, 2019 Assessment & Plan (1) Wound of left foot: Left foot osteomyelitis Left foot wound H/O left foot wound after stepping on a nail 04/2017 H/O Neuropathy MRI Left foot: Suggestive of osteomyelitis of proximal metaphysis of the fourth metatarsal; osteitis without evidence of osteomyelitis at the head of the third metatarsal. Erosive changes of the head of the second metatarsal Venous Dopplers: No evidence of DVT Arterial Doppler: Normal ankle-brachial indices S/P incision and drainage, left foot--second metatarsal arthroplasty and third metatarsal head resection POD #4 Continue IV Dapto and Zosyn Day #6>> transition to IV ceftriaxone Wound Culture: Staph aureus, alpha strep not enterococcus, Haemophilus Parainfluenza Deep Wound Culture: Pansensitive staph aureus Blood cultures:No growth to date Appreciate Orthopedics, ID input Continue local wound care as per Ortho Pain control is controlled PICC line placed Plan to complete IV antibiotics for a duration of 6 weeks Needs Home Health (2) Hypertension: Stable Continue lisinopril (3) PEARL on CPAP: CPAP as per home settings Qhs (4) Tobacco abuse: Counseled tobacco cessation (5) Alcohol abuse: No signs of withdrawal Continue thiamine, folic acid (6) DVT prophylaxis: SQ Lovenox Disposition Needs home health for IV antibiotics Case management following Plan to discharge home today Subjective Patient is seen and examined at bedside Discussed with orthopedic surgery today Complains of leg pain at surgical site No new complaints Had PICC line placement yesterday Denies any chest pain, shortness of breath, dizziness, nausea, abdominal pain Review of Systems Review of Systems: All systems reviewed & are unremarkable except as noted in HPI & below Physical Exam Physical Exam: Physical Exam: Vitals signs as noted above General Appearance:Obese, no apparent distress Head: normocephalic, Atraumatic Eyes: normal inspection, EOMI Neck: supple, Trachea midline Respiratory/Chest: Normal breath sounds, CTA Cardiovascular: S1, S2, No murmur Abdomen/GI:Soft, Non tender, Bowel sounds present Extremities/Musculoskelatal:normal inspection, chronic venous stasis changes, left foot in dressing Neurologic/Psych:AAOX3, grossly no focal neurological deficits Skin: normal color, warm Results & Data Vital Signs (Past 12 Hours) Vital Signs Temp Pulse Resp BP Pulse Ox 01/18/19 07:26 36.4 C L 69 20 153/93 H 94
--- NOTE | 2019-01-18 15:00 | Discharge Summary ---
Date of Service January 18, 2019 Admission HPI Per Admitting Provider 48-year-old male who presents to the ED with a left foot wound. Patient has history of a prior left foot wound after stepping on a nail 04/2017. At that time, patient developed left septic third MCP joint, flexor tendosynovitis, and plantar foot abscess. He underwent extensive debridement at that time. Wound had completely healed by 07/2017. Wound reopened 09/2018, possibly secondary to boots the patient has been wearing for work. Patient was seen up in the wound care clinic at [facility] and had localized debridement and was placed on p.o. Augmentin. Patient reports wound had again closed up however reopened about 3 weeks ago. He noticed drainage last evening. He also had pain extending from the bottom of the foot up into the calf. He reports he felt generally unwell and felt as though he had a fever however did not take his temperature. Patient denies chest pain shortness of breath. No lightheadedness, dizziness, diaphoresis, syncopal events. He denies abdominal pain, nausea, vomiting, toby rrhea. No urinary symptoms. In the ED, left foot x-ray shows findings suggesting generalized soft tissue edema surrounding the second and third metatarsal phalangeal complexes. Possibility of an infectious process creating the disruption at the metatarsophalangeal joints must be considered. WBC 13.9K, other labs unremarkable. Patient is hemodynamically stable. Patient was given IV Zosyn and IV daptomycin. Admission Exam Per Admitting Provider Constitutional: WD/WN, vitals as above Eyes: PERRL, conjunctivae normal, anicteric sclerae ENMT: external ear and nose normal, oropharynx normal Respiratory: normal respiratory effort, lungs clear to auscultation Cardiovascular: Rate/Rhythm: regular rate and regular rhythm Vessels: normal peripheral pulses Extremities: no edema Gastrointestinal (Abdomen): normal bowel sounds, soft, nontender, no hepatosplenomegaly Musculoskeletal: no cyanosis or clubbing, extremities motor strength 5/5 Skin: no rashes, warm and dry Chronic venous changes noted to BLLE; ~ 6cm calloused wound with small open area in the center noted to plantar surface of left foot at the base of the third metatarsal with associated erythema and edema to the second and third toes, no drainage noted at this time Neurologic: PERRL, EOMI, accommodation nl, no face palsy, no dysarthria Psychiatric: A+Ox3, euthymic affect Principal Diagnosis Discharge Information Discharge Diagnosis Left foot osteomyelitis Discharge Goals Decrease discomfort,Improve function,Improve disease control Discharge Activity Limitations Per instructions/follow-up Discharge Data Allergies Allergy/AdvReac Type Severity Reaction Status Date / Time No Known Allergies Allergy Unverified 01/11/19 10:46 Consultations 01/11/19 12:51 ED Decision to Admit Stat 01/11/19 16:34 Consult Orthopedic Surgery Routine 01/12/19 09:30 Consult Infectious Diseases Routine Procedures Performed Operation Date: 01/14/19 12:15 Actual Procedures p Resection of second metatarsal arthroplasty, resection of third metatarsal head, debridement neuropathic plantar ulcer left foot, skin fascia tendon, I&D abscess(Left) - Mian Viera, Left Foot MRI: 1. Findings highly suspicious for osteomyelitis of the base and proximal metaphysis of the fourth metatarsal. No convincing evidence of septic arthritis though there is findings to suggest minimal involvement of the subarticular cuboid at the articulation with the fourth metatarsal. 2. Osteitis without convincing evidence of osteomyelitis at the head of the third metatarsal. Fluid in the third metatarsophalangeal joint could be reactive given the associated apparent erosions of the third metatarsal head. Septic arthritis is difficult to exclude though not favored. 3. Milder erosive changes of the head of the second metatarsal without associated bone marrow signal changes. This may be on a degenerative or other arthropathy basis. The report will be called/faxed according to standard departmental protocol. CXR: Malpositioned right-sided PICC catheter which is looped back with its tip extending into the upper arm or chest wall. US arterial duplex LE LT 1. Elevated velocity in the mid left superficial femoral artery is less than a doubling of upstream velocity and therefore not felt to be hemodynamically significant. 2. Normal ankle-brachial indices. Venous Doppler: No evidence of deep venous thrombosis. Incidental note is made of probable reactive adenopathy of the inguinal region with nodes measuring up to 3.5 x 2.0 cm. Ordered Studies 01/11/19 10:57 US venous doppler LE LT Stat 01/11/19 16:34 US arterial duplex LE LT Routine 01/11/19 17:05 MR foot LT wo/w con Urgent Hospital Course (1) Wound of left foot: Left foot osteomyelitis Left foot wound H/O left foot wound after stepping on a nail 04/2017 H/O Neuropathy MRI Left foot: Suggestive of osteomyelitis of proximal metaphysis of the fourth metatarsal; osteitis without evidence of osteomyelitis at the head of the third metatarsal. Erosive changes of the head of the second metatarsal Venous Dopplers: No evidence of DVT Arterial Doppler: Normal ankle-brachial indices S/P incision and drainage, left foot--second metatarsal arthroplasty and third metatarsal head resection POD #4 Continue IV Dapto and Zosyn Day #6>> transition to IV ceftriaxone Wound Culture: Staph aureus, alpha strep not enterococcus, Haemophilus Parainfluenza Deep Wound Culture: Pansensitive staph aureus Blood cultures:No growth to date Appreciate Orthopedics, ID input Continue local wound care as per Ortho Pain control is controlled PICC line placed Plan to complete IV antibiotics for a duration of 6 weeks Needs Home Health (2) Hypertension: Stable Continue lisinopril (3) PEARL on CPAP: CPAP as per home settings Qhs (4) Tobacco abuse: Counseled tobacco cessation (5) Alcohol abuse: No signs of withdrawal Continue thiamine, folic acid (6) DVT prophylaxis: SQ Lovenox Disposition Needs home health for IV antibiotics Case management following Plan to discharge home today Total Time Total Time Spent Total Time Spent (In Minutes): 42 minutes Total Time Includes: Examination of the Patient, Discharge Planning, Medication Reconciliation, Communication With Other Providers and Other Discharge Plan Discharge Items Patient Disposition: Home - Home Health Services Reason For Visit: LEFT FOOT WOUND Discharge Diagnosis: Left foot osteomyelitis Discharge Goals: Decrease discomfort, Improve disease control and Improve function Activity: Per 'Additional Instructions' section Exercise/Sports: Gradually increase as tolerated Weightbearing: Left non-weightbearing Non-emergency contact: Primary Care Provider, Surgeon and Specialist Call non-emergency contact if: you have any medication questions, your symptoms worsen, your pain is not controlled, your pain is worsening, your pain is unusual for you, your pain is concerning for you, you have a fever, your wound has increased redness, your wound has increased drainage and your wound pain has increased Follow-up/Referrals: Mian Viera DO [Surgeon] - (Call to make an appointment for 1 week after discharge for wound check.) PCP,NO [Primary Care Provider] - Diet: Heart Healthy Addtl Provider Instructions: Follow-up with your primary care physician Dr. Pipo Vu on Jan 27, 2019 at 9AM Follow-up with your orthopedic surgeon as recommended Follow up with your Infectious disease in 2-4 weeks Complete the antibiotic course as recommended by your infectious disease IV Ceftriaxone 2gms daily for 6 weeks ACTIVITY RECOMMENDATIONS: Limitations: Nonweightbearing on the left lower extremity at all times. SPECIAL CARE INSTRUCTIONS: * Some drainage onto the dressing is normal and is no cause for alarm. * Some swelling is natural especially after walking. * When resting, keep your foot elevated above the level of your heart. * Call [facility] if you notice: -Increased drainage -Fever over 101 degrees F -Severe constant pain BANDAGE: * Daily dressing changes. * Keep bandage/cast dry at all times. PIN CARE: * Leave pins alone. * If pins come loose or fall out, notify physician. FOLLOW UP VISIT WITH DR. VIERA If appointment is not already scheduled: Please call [facility] after you get home today to schedule a follow-up appointment for [address] Viera at . Prescriptions: New thiamine HCl (vitamin B1) [Vitamin B-1] 100 mg Tablet 100 mg PO QAM 30 Days Qty: 30 RF: 0 folic acid 1 mg Tablet 1 mg PO QAM 30 Days Qty: 30 RF: 0 oxycodone-acetaminophen [Percocet] 5-325 mg tablet 1 tab PO Q8H PRN (Reason: pain) Qty: 10 RF: 0 Continued lisinopril 20 mg Tablet 20 mg PO QAM RF: 0 Stand-Alone Forms: [facility] Discharge Orders: Discharge Order (Routine); Ordered 01/18/19 Ordered By: Tucker Almazan Admission Data Admit Date/Time: 01/11/19 13:05 Attending Provider: Tucker Almazan Admit Provider: Matilde Mathias Primary Care Provider: PCP,NO Other Providers: Matilde Mathias ; Mian Viera ; Job Anderson Service: Medical Other Interventions: Discharge Summary Assessment (RN) Last Done: 01/18/19 15:16 Pending Studies at Discharge: No DC Date/Time DO NOT enter until pt leaves facility: 01/18/19 15:40
== END 2019-01-18 15:40 | disposition home health service (06) | DRG 464 ==
LOC: ED 09:56 → 4W 13:05